=== PATIENT | female | born 1945 | race Caucasian/White ===

== ENCOUNTER 2017-11-28 19:13 | Emergency (ER) | payer MEDICARE ==
[~2017-11-28] VITALS: Ht 152.4 cm; Wt 70.8 kg
[2017-11-28 20:16] LABS: BASOPHILS # (AUTO) 0.1 (0.0-0.1); EOSINOPHILS # (AUTO) 0.3 (0.0-0.4); EOSINOPHILS % 3.2 % (0.0-6.0); HEMOGLOBIN 11.7 g/dL (12.0-16.0); LYMPHOCYTES # (AUTO) 2.7 (1.0-3.2); LYMPHOCYTES % 33.5 % (18.0-39.1); MEAN CORPUSCULAR HEMOGLOBIN 28.3 pg (28-32); MEAN CORPUSCULAR HGB CONC 31.6 g/dL (31-35); MEAN CORPUSCULAR VOLUME 89.4 fL (81-99); MONOCYTES # (AUTO) 0.8 (0.2-0.8); MONOCYTES % 9.5 % (4.4-11.3); NEUTROPHILS # (AUTO) 4.2 (2.1-6.9); NEUTROPHILS % 52.6 % (38.7-80.0); PLATELET COUNT 435 x10e3/uL (140-360); RED BLOOD COUNT 4.14 x10e6/uL (3.6-5.1); RED CELL DISTRIBUTION WIDTH 14.3 % (11.7-14.4)
[2017-11-28 20:33] LABS: ALANINE AMINOTRANSFERASE 11 IU/L (0-55); ALBUMIN 2.9 g/dL (3.5-5.0); ALBUMIN/GLOBULIN RATIO 0.7 (0.8-2.0); ALKALINE PHOSPHATASE 83 IU/L (40-150); ANION GAP 14.1 mmol/L (8-16); BLOOD UREA NITROGEN 14 mg/dL (7-26); BUN/CREATININE RATIO 24 (6-25); CALCIUM 10.2 mg/dL (8.4-10.2); CARBON DIOXIDE 29 mmol/L (22-29); CHLORIDE 102 mmol/L (98-107); CREATININE, SERUM 0.59 mg/dL (0.57-1.11); EST GLOMERULAR FILTRATION RATE > 60 ML/MIN (60-); GLUCOSE 90 mg/dL (74-118); POTASSIUM 4.1 mmol/L (3.5-5.1); SODIUM 141 mmol/L (136-145)
== END 2017-11-28 22:15 | disposition home or self-care (01) ==
LOC: ER 19:13
DX: M79.1 Myalgia (principal); R60.0 Localized edema
CPT/HCPCS: 36415; 80053; 85025; 87400; 99283

== ENCOUNTER 2019-07-18 23:32 | Inpatient (IN) | payer MEDICARE, OTHER ==
[~2019-07-18] VITALS: Ht 152.4 cm; Wt 60.1 kg
--- OUTSIDE RECORDS SUMMARY | 2019-07-18 23:35 | XMS REPORT ---
[facility] Address Unknown Phone Unavailable Care Team Providers Care Station Installation Supervisor Name Role Phone BAM PARHAM MD PP Payers Payer Name Policy Type Policy Number Effective Date Expiration Date [facility] [id number] 2008 00:00:00 Problems This patient has no known problems. Allergies, Adverse Reactions, Alerts Allergy Name Allergy Type Status Severity Reaction(s) Onset Date Inactive Date Treating Clinician Comments No Known Allergies DA Active U 2019-05-25 00:00:00 No Known Allergies DA Active U 2010-11-06 00:00:00 Medications This patient has no known medications. Encounters Start Date/Time End Date/Time Encounter Type Admission Type Attending Clinicians Care Facility Care Department Encounter ID 2019-05-11 02:09:00 2019-05-10 20:38:00 Inpatient E [facility] [id number] 2017-11-28 19:13:00 2017-11-28 19:13:00 Registered Emergency Room [facility] [id number] Results Test Description Test Time Test Comments Text Results Atomic Results Result Comments UA RFLX MICR CULT IF INDICATED 2019-05-31 16:16:00 UA COLOR (test code=COLU) YELLOW YEL/STRAW UA APPEARANCE (test code=APPU) CLEAR CLEAR UA GLUCOSE DIPSTICK (test code=DGLUU) NEGATIVE NEGATIVE UA BILIRUBIN DIPSTICK (test code=BILU) NEGATIVE NEGATIVE UA KETONE DIPSTICK (test code=KETU) NEGATIVE NEGATIVE UA SPECIFIC GRAVITY (test code=SGU) 1.006 1.005-1.030 UA BLOOD DIPSTICK (test code=SHARON) 1+ NEGATIVE UA PH DIPSTICK (test code=BRYN) 7.0 5.0-7.0 UA PROTEIN DIPSTICK (test code=PROU) NEGATIVE NEGATIVE UA UROBILINIOGEN DIPSTICK (test code=URO) 0.2 mg/dL 0.2-1.0 UA NITRITE DIPSTICK (test code=RACH) NEGATIVE NEGATIVE UA LEUKOCYTE ESTERASE DIPSTICK (test code=LEUU) NEGATIVE NEGATIVE UA WBC (test code=WBCU) 0-3 WBC/HPF 0-3 UA RBC (test code=RBCU) 11-20 RBC/HPF 0-3 UA WBC NO REFLEX (test code=WBCUCL) 0-3 WBC/HPF 0-3 UA BACTERIA (test code=BACU) NONE SEEN /HPF NONE SEEN UA SQUAMOUS CELLS (test code=SQU) NONE SEEN /HPF NONE SEEN UA MUCUS (test code=MUCU) TRACE /LPF NONE SEEN UA AMORPHOUS SEDIMENT (test code=AMORU) TRACE /HPF NONE Indication for culture: Temperature > 100.4 FSpecimen Description: CLEAN CATCHBASIC METABOLIC [id number] 08:07:00* Test Item Value Reference Range Comments SODIUM (test code=NA) 134 mEq/L 134-147 POTASSIUM (test code=K) 4.0 mEq/L 3.4-5.0 CHLORIDE (test code=CL) 101 mEq/L 100-108 CARBON DIOXIDE (test code=CO2) 24 mEq/L 21-33 ANION GAP (test code=GAP) 13 0-20 GLUCOSE (test code=GLU) 63 mg/dL 70-110 BLOOD UREA NITROGEN (test code=BUN) 7 mg/dL 7-18 GLOMERULAR FILTRATION RATE (test code=GFR) 216.9 70-80 Units of measure=ml/min/1.73 m2 CREATININE (test code=CREAT) 0.3 mg/dL 0.6-1.3 CALCIUM (test code=CA) 9.3 mg/dL 8.0-10.5 CBC W/AUTO [id number] 07:47:00* Test Item Value Reference Range Comments WHITE BLOOD CELL (test code=WBC) 7.08 x10 3/uL 4.5-11.0 RED BLOOD CELL (test code=RBC) 3.35 x10 6/uL 3.54-5.02 HEMOGLOBIN (test code=HGB) 9.1 g/dL 11.0-15.0 HEMATOCRIT (test code=HCT) 27.4 % 33.0-45.0 MEAN CELL VOLUME (test code=MCV) 81.8 fL 81.0-99.0 MEAN CELL HGB (test code=MCH) 27.2 pg 27.0-33.0 MEAN CELL HGB CONCETRATION (test code=MCHC) 33.2 g/dL 33.0-37.0 RED CELL DISTRIBUTION WIDTH CV (test code=RDW) 16.0 % 11.5-14.5 RED CELL DISTRIBUTION WIDTH SD (test code=RDW-SD) 46.9 fL 37.0-54.0 PLATELET COUNT (test code=PLT) 423 x10 3/uL 150-400 MEAN PLATELET VOLUME (test code=MPV) 10.9 fL 7.0-9.0 NEUTROPHIL % (test code=NT%) 56.5 % 56.0-77.0 IMMATURE GRANULOCYTE % (test code=IG%) 0.6 % 0.0-2.0 LYMPHOCYTE % (test code=LY%) 26.1 % 14.0-32.0 MONOCYTE % (test code=MO%) 8.8 % 4.8-9.0 EOSINOPHIL % (test code=EO%) 6.9 % 0.3-3.7 BASOPHIL % (test code=BA%) 1.1 % 0.0-2.0 NUCLEATED RBC % (test code=NRBC%) 0.0 % 0-0 NEUTROPHIL # (test code=NT#) 4.00 x10 3/uL 2.0-7.6 IMMATURE GRANULOCYTE # (test code=IG#) 0.04 x10 3/uL 0.00-0.03 LYMPHOCYTE # (test code=LY#) 1.85 x10 3/uL 1.0-3.8 MONOCYTE # (test code=MO#) 0.62 x10 3/uL 0.1-0.8 EOSINOPHIL # (test code=EO#) 0.49 x10 3/uL 0.0-0.2 BASOPHIL # (test code=BA#) 0.08 x10 3/uL 0.0-0.2 NUCLEATED RBC # (test code=NRBC#) 0.00 x10 3/uL 0.0-0.1 MANUAL DIFF REQUIRED (test code=MDIFF) NO [id number] 21:19:00* Test Item Value Reference Range Comments GLUBED (test code=GLUBED) 77 MG/DL 70-110 Performed by certified transmission system operator at [facility] CBC W/AUTO [id number] 09:14:00* Test Item Value Reference Range Comments WHITE BLOOD CELL (test code=WBC) 7.09 x10 3/uL 4.5-11.0 RED BLOOD CELL (test code=RBC) 3.52 x10 6/uL 3.54-5.02 HEMOGLOBIN (test code=HGB) 9.6 g/dL 11.0-15.0 HEMATOCRIT (test code=HCT) 30.4 % 33.0-45.0 MEAN CELL VOLUME (test code=MCV) 86.4 fL 81.0-99.0 MEAN CELL HGB (test code=MCH) 27.3 pg 27.0-33.0 MEAN CELL HGB CONCETRATION (test code=MCHC) 31.6 g/dL 33.0-37.0 RED CELL DISTRIBUTION WIDTH CV (test code=RDW) 15.9 % 11.5-14.5 RED CELL DISTRIBUTION WIDTH SD (test code=RDW-SD) 49.7 fL 37.0-54.0 PLATELET COUNT (test code=PLT) 501 x10 3/uL 150-400 MEAN PLATELET VOLUME (test code=MPV) 10.0 fL 7.0-9.0 NEUTROPHIL % (test code=NT%) 69.0 % 56.0-77.0 IMMATURE GRANULOCYTE % (test code=IG%) 0.3 % 0.0-2.0 LYMPHOCYTE % (test code=LY%) 18.6 % 14.0-32.0 MONOCYTE % (test code=MO%) 6.6 % 4.8-9.0 EOSINOPHIL % (test code=EO%) 4.7 % 0.3-3.7 BASOPHIL % (test code=BA%) 0.8 % 0.0-2.0 NUCLEATED RBC % (test code=NRBC%) 0.0 % 0-0 NEUTROPHIL # (test code=NT#) 4.89 x10 3/uL 2.0-7.6 IMMATURE GRANULOCYTE # (test code=IG#) 0.02 x10 3/uL 0.00-0.03 LYMPHOCYTE # (test code=LY#) 1.32 x10 3/uL 1.0-3.8 MONOCYTE # (test code=MO#) 0.47 x10 3/uL 0.1-0.8 EOSINOPHIL # (test code=EO#) 0.33 x10 3/uL 0.0-0.2 BASOPHIL # (test code=BA#) 0.06 x10 3/uL 0.0-0.2 NUCLEATED RBC # (test code=NRBC#) 0.00 x10 3/uL 0.0-0.1 MANUAL DIFF REQUIRED (test code=MDIFF) NO BASIC METABOLIC [id number] 08:25:00* Test Item Value Reference Range Comments SODIUM (test code=NA) 139 mEq/L 134-147 POTASSIUM (test code=K) 4.0 mEq/L 3.4-5.0 CHLORIDE (test code=CL) 108 mEq/L 100-108 CARBON DIOXIDE (test code=CO2) 24 mEq/L 21-33 ANION GAP (test code=GAP) 11 0-20 GLUCOSE (test code=GLU) 75 mg/dL 70-110 BLOOD UREA NITROGEN (test code=BUN) 11 mg/dL 7-18 GLOMERULAR FILTRATION RATE (test code=GFR) 216.9 70-80 Units of measure=ml/min/1.73 m2 CREATININE (test code=CREAT) 0.3 mg/dL 0.6-1.3 CALCIUM (test code=CA) 8.7 mg/dL 8.0-10.5 UA RFLX MICR CULT IF [id number] 01:29:00* Test Item Value Reference Range Comments UA COLOR (test code=COLU) YELLOW YEL/STRAW UA APPEARANCE (test code=APPU) HAZY CLEAR UA GLUCOSE DIPSTICK (test code=DGLUU) NEGATIVE NEGATIVE UA BILIRUBIN DIPSTICK (test code=BILU) NEGATIVE NEGATIVE UA KETONE DIPSTICK (test code=KETU) NEGATIVE NEGATIVE UA SPECIFIC GRAVITY (test code=SGU) 1.010 1.005-1.030 UA BLOOD DIPSTICK (test code=SHARON) 1+ NEGATIVE UA PH DIPSTICK (test code=BRYN) 7.0 5.0-7.0 UA PROTEIN DIPSTICK (test code=PROU) NEGATIVE NEGATIVE UA UROBILINIOGEN DIPSTICK (test code=URO) 0.2 mg/dL 0.2-1.0 UA NITRITE DIPSTICK (test code=RACH) NEGATIVE NEGATIVE UA LEUKOCYTE ESTERASE DIPSTICK (test code=LEUU) 2+ NEGATIVE UA WBC (test code=WBCU) 4-9 WBC/HPF 0-3 UA RBC (test code=RBCU) 4-10 RBC/HPF 0-3 UA WBC NO REFLEX (test code=WBCUCL) 4-9 WBC/HPF 0-3 UA BACTERIA (test code=BACU) TRACE /HPF NONE SEEN UA SQUAMOUS CELLS (test code=SQU) 0-5 /HPF NONE SEEN UA MUCUS (test code=MUCU) TRACE /LPF NONE SEEN UA YEAST (BUDDING) (test code=YEASTUBD) 2+ /HPF NONE Indication for culture: Temperature > 100.4 FSpecimen Description: STRAIGHT CATHUA RFLX MICR CULT IF [id number] 01:14:00* Test Item Value Reference Range Comments UA COLOR (test code=COLU) YELLOW YEL/STRAW UA APPEARANCE (test code=APPU) HAZY CLEAR UA GLUCOSE DIPSTICK (test code=DGLUU) NEGATIVE NEGATIVE UA BILIRUBIN DIPSTICK (test code=BILU) NEGATIVE NEGATIVE UA KETONE DIPSTICK (test code=KETU) NEGATIVE NEGATIVE UA SPECIFIC GRAVITY (test code=SGU) 1.010 1.005-1.030 UA BLOOD DIPSTICK (test code=SHARON) 1+ NEGATIVE UA PH DIPSTICK (test code=BRYN) 7.0 5.0-7.0 UA PROTEIN DIPSTICK (test code=PROU) NEGATIVE NEGATIVE UA UROBILINIOGEN DIPSTICK (test code=URO) 0.2 mg/dL 0.2-1.0 UA NITRITE DIPSTICK (test code=RACH) NEGATIVE NEGATIVE UA LEUKOCYTE ESTERASE DIPSTICK (test code=LEUU) 2+ NEGATIVE UA WBC (test code=WBCU) WBC/HPF 0-3 UA RBC (test code=RBCU) RBC/HPF 0-3 Indication for culture: Temperature > 100.4 FSpecimen Description: STRAIGHT CATHPROCALCITONIN (PCT)2019-05-27 10:46:00* Test Item Value Reference Range Comments PROCALCITONIN (PCT) (test code=PROCAL) 0.73 ng/mL 0.00-0.05 PROCALCITONIN (PCT) NORMAL RANGE (ADULT): <0.05 NG/ML. * a concentration <0.5 ng/mL represents a low risk of severe sepsis and/or septic shock.* a concentration >2 ng/mL represents a high risk of severe sepsis and/or septic shock.Nevertheless, concentrations <0.5 ng/mL do not exclude aninfection, on account of localized infections (withoutsystemic signs) which can be associated with such lowconcentrations, or a systemic infection in its initialstages (< 6 hours). Furthermore, increased procalcitonincan occur without infection. PCT concentrations between 0.5and 2.0 ng/mL should be interpreted taking into account thepatient's history. It is recommended to retest PCT within6-24 hours if any concentrations <2 ng/mL are obtained. CBC W/AUTO [id number] 06:09:00* Test Item Value Reference Range Comments WHITE BLOOD CELL (test code=WBC) 8.26 x10 3/uL 4.5-11.0 RED BLOOD CELL (test code=RBC) 3.20 x10 6/uL 3.54-5.02 HEMOGLOBIN (test code=HGB) 8.8 g/dL 11.0-15.0 HEMATOCRIT (test code=HCT) 27.4 % 33.0-45.0 MEAN CELL VOLUME (test code=MCV) 85.6 fL 81.0-99.0 MEAN CELL HGB (test code=MCH) 27.5 pg 27.0-33.0 MEAN CELL HGB CONCETRATION (test code=MCHC) 32.1 g/dL 33.0-37.0 RED CELL DISTRIBUTION WIDTH CV (test code=RDW) 15.5 % 11.5-14.5 RED CELL DISTRIBUTION WIDTH SD (test code=RDW-SD) 47.6 fL 37.0-54.0 PLATELET COUNT (test code=PLT) 347 x10 3/uL 150-400 MEAN PLATELET VOLUME (test code=MPV) 9.6 fL 7.0-9.0 NEUTROPHIL % (test code=NT%) 74.2 % 56.0-77.0 IMMATURE GRANULOCYTE % (test code=IG%) 0.2 % 0.0-2.0 LYMPHOCYTE % (test code=LY%) 15.5 % 14.0-32.0 MONOCYTE % (test code=MO%) 7.3 % 4.8-9.0 EOSINOPHIL % (test code=EO%) 2.2 % 0.3-3.7 BASOPHIL % (test code=BA%) 0.6 % 0.0-2.0 NUCLEATED RBC % (test code=NRBC%) 0.0 % 0-0 NEUTROPHIL # (test code=NT#) 6.13 x10 3/uL 2.0-7.6 IMMATURE GRANULOCYTE # (test code=IG#) 0.02 x10 3/uL 0.00-0.03 LYMPHOCYTE # (test code=LY#) 1.28 x10 3/uL 1.0-3.8 MONOCYTE # (test code=MO#) 0.60 x10 3/uL 0.1-0.8 EOSINOPHIL # (test code=EO#) 0.18 x10 3/uL 0.0-0.2 BASOPHIL # (test code=BA#) 0.05 x10 3/uL 0.0-0.2 NUCLEATED RBC # (test code=NRBC#) 0.00 x10 3/uL 0.0-0.1 MANUAL DIFF REQUIRED (test code=MDIFF) NO BASIC METABOLIC [id number] 05:52:00* Test Item Value Reference Range Comments SODIUM (test code=NA) 139 mEq/L 134-147 POTASSIUM (test code=K) 3.8 mEq/L 3.4-5.0 CHLORIDE (test code=CL) 108 mEq/L 100-108 CARBON DIOXIDE (test code=CO2) 25 mEq/L 21-33 ANION GAP (test code=GAP) 10 0-20 GLUCOSE (test code=GLU) 89 mg/dL 70-110 BLOOD UREA NITROGEN (test code=BUN) 10 mg/dL 7-18 GLOMERULAR FILTRATION RATE (test code=GFR) 155.6 70-80 Units of measure=ml/min/1.73 m2 CREATININE (test code=CREAT) 0.4 mg/dL 0.6-1.3 CALCIUM (test code=CA) 8.1 mg/dL 8.0-10.5 [id number] 05:52:00* Test Item Value Reference Range Comments MAGNESIUM (test code=MAG) 1.60 mg/dL 1.8-2.[id number] 16:36:00* Test Item Value Reference Range Comments SYNOVIAL FLD COLOR (test code=COLSY) YELLOW SYNOVIAL FLD APPEARANCE (test code=APPSY) CLOUDY SYNOVIAL FLD WBC (test code=WBCSY) 4005 cells/uL 0-200 SYNOVIAL FLD RBC (test code=RBCSY) 3000 Cells/uL 0-0 SYNOVIAL FLD POLY (test code=POLYSY) 93 % SYNOVIAL FLD LYMPHOCYTE (test code=LYMPHSY) 1 % SYNOVIAL FLD MONOCYTE (test code=MONOSY) 6 % CRYSTAL [id number] 15:17:00* Test Item Value Reference Range Comments CRYSTALS BY POLARIZED LIGHT (test code=THALIA) POS FOR URIC ACID SPECIMEN SOURCE (test code=SCRYS) SYNOVIAL FLUID SYNOVIAL FLD CELL [id number] 14:38:00* Test Item Value Reference Range Comments SYNOVIAL FLD COLOR (test code=COLSY) SYNOVIAL FLD APPEARANCE (test code=APPSY) SYNOVIAL FLD WBC (test code=WBCSY) 4005 cells/uL 0-200 SYNOVIAL FLD RBC (test code=RBCSY) 3000 Cells/uL 0-0 SYNOVIAL FLD POLY (test code=POLYSY) % CBC W/AUTO [id number] 10:20:00* Test Item Value Reference Range Comments WHITE BLOOD CELL (test code=WBC) 7.04 x10 3/uL 4.5-11.0 RED BLOOD CELL (test code=RBC) 3.16 x10 6/uL 3.54-5.02 HEMOGLOBIN (test code=HGB) 8.8 g/dL 11.0-15.0 HEMATOCRIT (test code=HCT) 27.4 % 33.0-45.0 MEAN CELL VOLUME (test code=MCV) 86.7 fL 81.0-99.0 MEAN CELL HGB (test code=MCH) 27.8 pg 27.0-33.0 MEAN CELL HGB CONCETRATION (test code=MCHC) 32.1 g/dL 33.0-37.0 RED CELL DISTRIBUTION WIDTH CV (test code=RDW) 15.6 % 11.5-14.5 RED CELL DISTRIBUTION WIDTH SD (test code=RDW-SD) 48.6 fL 37.0-54.0 PLATELET COUNT (test code=PLT) 604 x10 3/uL 150-400 MEAN PLATELET VOLUME (test code=MPV) 9.1 fL 7.0-9.0 NEUTROPHIL % (test code=NT%) 65.4 % 56.0-77.0 IMMATURE GRANULOCYTE % (test code=IG%) 0.4 % 0.0-2.0 LYMPHOCYTE % (test code=LY%) 23.2 % 14.0-32.0 MONOCYTE % (test code=MO%) 7.2 % 4.8-9.0 EOSINOPHIL % (test code=EO%) 2.8 % 0.3-3.7 BASOPHIL % (test code=BA%) 1.0 % 0.0-2.0 NUCLEATED RBC % (test code=NRBC%) 0.0 % 0-0 NEUTROPHIL # (test code=NT#) 4.60 x10 3/uL 2.0-7.6 IMMATURE GRANULOCYTE # (test code=IG#) 0.03 x10 3/uL 0.00-0.03 LYMPHOCYTE # (test code=LY#) 1.63 x10 3/uL 1.0-3.8 MONOCYTE # (test code=MO#) 0.51 x10 3/uL 0.1-0.8 EOSINOPHIL # (test code=EO#) 0.20 x10 3/uL 0.0-0.2 BASOPHIL # (test code=BA#) 0.07 x10 3/uL 0.0-0.2 NUCLEATED RBC # (test code=NRBC#) 0.00 x10 3/uL 0.0-0.1 MANUAL DIFF REQUIRED (test code=MDIFF) NO SED RATE [id number] 10:20:00* Test Item Value Reference Range Comments SED RATE ALONDRA (test code=SEDW) 112 mm/hr 0-20 CBC W/AUTO [id number] 09:41:00* Test Item Value Reference Range Comments WHITE BLOOD CELL (test code=WBC) 7.04 x10 3/uL 4.5-11.0 RED BLOOD CELL (test code=RBC) 3.16 x10 6/uL 3.54-5.02 HEMOGLOBIN (test code=HGB) 8.8 g/dL 11.0-15.0 HEMATOCRIT (test code=HCT) 27.4 % 33.0-45.0 MEAN CELL VOLUME (test code=MCV) 86.7 fL 81.0-99.0 MEAN CELL HGB (test code=MCH) 27.8 pg 27.0-33.0 MEAN CELL HGB CONCETRATION (test code=MCHC) 32.1 g/dL 33.0-37.0 RED CELL DISTRIBUTION WIDTH CV (test code=RDW) 15.6 % 11.5-14.5 RED CELL DISTRIBUTION WIDTH SD (test code=RDW-SD) 48.6 fL 37.0-54.0 PLATELET COUNT (test code=PLT) 604 x10 3/uL 150-400 MEAN PLATELET VOLUME (test code=MPV) 9.1 fL 7.0-9.0 NEUTROPHIL % (test code=NT%) 65.4 % 56.0-77.0 IMMATURE GRANULOCYTE % (test code=IG%) 0.4 % 0.0-2.0 LYMPHOCYTE % (test code=LY%) 23.2 % 14.0-32.0 MONOCYTE % (test code=MO%) 7.2 % 4.8-9.0 EOSINOPHIL % (test code=EO%) 2.8 % 0.3-3.7 BASOPHIL % (test code=BA%) 1.0 % 0.0-2.0 NUCLEATED RBC % (test code=NRBC%) 0.0 % 0-0 NEUTROPHIL # (test code=NT#) 4.60 x10 3/uL 2.0-7.6 IMMATURE GRANULOCYTE # (test code=IG#) 0.03 x10 3/uL 0.00-0.03 LYMPHOCYTE # (test code=LY#) 1.63 x10 3/uL 1.0-3.8 MONOCYTE # (test code=MO#) 0.51 x10 3/uL 0.1-0.8 EOSINOPHIL # (test code=EO#) 0.20 x10 3/uL 0.0-0.2 BASOPHIL # (test code=BA#) 0.07 x10 3/uL 0.0-0.2 NUCLEATED RBC # (test code=NRBC#) 0.00 x10 3/uL 0.0-0.1 MANUAL DIFF REQUIRED (test code=MDIFF) NO SED RATE [id number] 09:41:00* Test Item Value Reference Range Comments SED RATE WESTERGREN (test code=SEDW) mm/hr 0-20 PROCALCITONIN (PCT)2019-05-26 09:40:00* Test Item Value Reference Range Comments PROCALCITONIN (PCT) (test code=PROCAL) 0.21 ng/mL 0.00-0.05 PROCALCITONIN (PCT) NORMAL RANGE (ADULT): <0.05 NG/ML. * a concentration <0.5 ng/mL represents a low risk of severe sepsis and/or septic shock.* a concentration >2 ng/mL represents a high risk of severe sepsis and/or septic shock.Nevertheless, concentrations <0.5 ng/mL do not exclude aninfection, on account of localized infections (withoutsystemic signs) which can be associated with such lowconcentrations, or a systemic infection in its initialstages (< 6 hours). Furthermore, increased procalcitonincan occur without infection. PCT concentrations between 0.5and 2.0 ng/mL should be interpreted taking into account thepatient's history. It is recommended to retest PCT within6-24 hours if any concentrations <2 ng/mL are obtained. BASIC METABOLIC [id number] 08:32:00* Test Item Value Reference Range Comments SODIUM (test code=NA) 140 mEq/L 134-147 POTASSIUM (test code=K) 2.6 mEq/L 3.4-5.0 CHLORIDE (test code=CL) 112 mEq/L 100-108 CARBON DIOXIDE (test code=CO2) 23 mEq/L 21-33 ANION GAP (test code=GAP) 8 0-20 GLUCOSE (test code=GLU) 85 mg/dL 70-110 BLOOD UREA NITROGEN (test code=BUN) 8 mg/dL 7-18 GLOMERULAR FILTRATION RATE (test code=GFR) 216.9 70-80 Units of measure=ml/min/1.73 m2 CREATININE (test code=CREAT) 0.3 mg/dL 0.6-1.3 CALCIUM (test code=CA) 8.2 mg/dL 8.0-10.5 [id number] 08:32:00* Test Item Value Reference Range Comments MAGNESIUM (test code=MAG) 1.50 mg/dL 1.8-2.4 - XR KNEE 1 OR 2 V [id number] 22:43:00 FAX: Bebe Jasmine MD [phone] [place]: St: [facility] FAX: Bam Shelton MD [phone] Name: KAMERON CHENEY [facility] : 1945 Age/S: 74/F [address] [place] [address] Unit #: [id number] Loc: [address] [address] Phys: Bebe Butts MD Acct: [id number] Dis Date: Status: ADM IN PHONE #: [phone] Exam Date: 05/25/20192102 FAX #: [phone] Reason: left knee swelling and pain EXAMS: CPT CODE: [id number] XR KNEE 1 [place] 2 [place] [id number] Left knee, 2 views dated 05/25/2019. HISTORY: Left knee pain and swelling. AP and crosstable lateral views of the left knee demonstrate no evidence of acute fracture, dislocation or bone dest ruction. Osteoarthritic changes are present and most significantly affect the patellofemoral joint. Fullness in the region of the suprapatellar bursa on the cross table lateral image likely indicates the presence of a left knee joint effusion. IMPRESSION: 1. No acute b rona abnormalities of the left knee are detected. 2. Left knee joint eff usion. SL: 131 at 2243 Reported and signed by: Sylvia Pineda. CC: Bebe Butts MD; Bam Parham MD Technologist: Maribell Martin, RT(R); Sapphire Rick RT(R) Trnscrd Date/Time/By: 05/25/2019 (2242) : By: Jai Orig Print D/T: S: 0 05/25/2019 (2245) PAGE 1 Signed Re port - XR SHOULDER 2 + V [id number] 22:40:00 FAX: Bebe Jasmine MD [phone] [place]: St: ADM FAX: Bam Shelton MD [phone] Name: KAMERON CHENEY [facility] : 1945 Age/S: 74/F [address] [place] [address] Unit #: [id number] Loc: G.446 [facility] X [address] Phys: Bebe Butts MD Acct: [id number] Dis Date: Status: ADM IN PHONE #: [phone] Exam Date: 05/25/20192102 FAX #: [phone] Reason: shoulder swelling and pain EXAMS: CPT CODE: [id number] XR SHOULDER 2 + [place] [id number] Right shoulder, 3 views dated 05/25/2019. HISTORY: Right shoulder pain and swelling. Images of the right shoulder wer e obtained in 3 projections. The proximal right humerus appears intact an d normally located. Superior subluxation of the humerus is noted with ero dipesh of the undersurface of the acromion and distal clavicle, compatible w ith a chronic rotator cuff tear. There is no evidence of acute fracture o r obvious bone destruction. Glenohumeral degenerative changes are noted. IMPRESSION: 1. No acute bony abnormalities of the right shoulder are detected. 2. 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 3. Glenohumeral osteoarthritis. SL: 131 at 2240 Reported and signed by: Steve Madrid M.D. CC: Bebe Butts MD; Bam Parham MD Technologist: Maribell Martin, RT(R); Sapphire Rick RT(R) Trnscrd Date/Time/By: 05/25/19 20 (0) : By: TamieDMM Orig Print D/T: S: 05/25/2019 (9304) PAGE 1 Signed Report PROCALCITONIN (PCT)2019-05-25 21:56:00* Test Item Value Reference Range Comments PROCALCITONIN (PCT) (test code=PROCAL) 0.25 ng/mL 0.00-0.05 PROCALCITONIN (PCT) NORMAL RANGE (ADULT): <0.05 NG/ML. * a concentration <0.5 ng/mL represents a low risk of severe sepsis and/or septic shock.* a concentration >2 ng/mL represents a high risk of severe sepsis and/or septic shock.Nevertheless, concentrations <0.5 ng/mL do not exclude aninfection, on account of localized infections (withoutsystemic signs) which can be associated with such lowconcentrations, or a systemic infection in its initialstages (< 6 hours). Furthermore, increased procalcitonincan occur without infection. PCT concentrations between 0.5and 2.0 ng/mL should be interpreted taking into account thepatient's history. It is recommended to retest PCT within6-24 hours if any concentrations <2 ng/mL are obtained. C REACTIVE [id number] 19:07:00* Test Item Value Reference Range Comments C REACTIVE PROTEIN (test code=CRP) 198.0 MG/L 0.0-2.9 URIC [id number] 18:57:00* Test Item Value Reference Range Comments URIC ACID (test code=URIC) 2.4 mg/dL 2.6-7.2 LACTIC ACID [id number] 19:48:00* Test Item Value Reference Range Comments LACTIC ACID REPEAT (test code=LACTR) 0.9 mmol/l 0.4-1.9 - CT CHEST [id number] 19:05:00 Name: KAMERON CHENEY Luttrell : 1945 Age/S: 74 / F [address] [place] [address] Unit #: [id number] Loc: [place] [address] Phys: Dale Dozier MD Acct: [id number] Dis Date: Status: ADM IN PHONE #: [phone] Exam Date: 05/24/2019 1834 FAX #: [phone] Reason: AMS / Abnormal CXR / Fever EXAMS: CPT CODE: [id number] CT CHEST W/CONTRAST 67061 Procedure: CT Chest with contrast. Clinical Indication: Altered mental status, fever. Comparison: Chest radiograph 05/24/2019. TECHNIQUE: Sequential trans-axial images were obtained thru the chest and upper abdomen after administration of iodinated contrast. Coronal and sagittal reconstructions were obtained. 100mL of Isovue-300 contrast material was used for the exam. CT imaging performed at this location utilizes radiation dose optimization techniques which include one or more of the following: -Automated exposure control -Adjustment of the mA and/or kV according to patient size - Use of iterative reconstruction technique CT Radiation Dose DLP 407 mGy-cm FINDINGS: LUNG PARENCHYMA AND PLEURA: There is subsegmental atelectasis and interstitial infiltrate in the posterior right upper lobe, with bibasilar subsegmental atelectasis in the posterior lower lobes. No focal consolidation or parenchymal mass. There is prominence of the right hilar vasculature likely responsible for density noted on chest radiograph. AIRWAY: The central airway is normal. MEDIASTINUM: There is no mediastinal lymphadenopathy. HEART: The heart is upper limits of normal in size. Coronary artery calcifications are present VASCULAR STRUCTURES: The pulmonary arteries and great vessels are unremarkable. The thoracic aorta is unremarkable. The superior vena cava is unremarkable. VISUALIZED UPPER ABDOMEN: There is a moderate-sized hiatal hernia. There is a complex 2.4 cm cystic lesion arising from the posterior upper pole of the left kidney d emonstrating a thin internal septation. A 1 cm partially exophytic simple appearing cyst is noted laterally. 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 Degenerative change and levoscoliosis involves the thora cic spine. There is accentuated dorsal kyphosis. PAGE 1 Signed Report (CONTINUED) Name: KAMERON CHENEY : 1945 Age/S: 74 / F [address] [facility] [address] Unit #: [id number] Loc: [place] [address] Phys: Dale Dozier MD Acct: [id number] Dis Date: Status: ADM IN PHONE #: [phone] Exam Date: 05/24/20191833 FAX #: [phone] Reason: AMS / Ab normal CXR / Fever EXAMS: CPT CODE: [id number] CT CHEST W/CONTRAST 61730 <Continued> IMPRESSION: 1. Bilateral subsegmental atelectasis with minimal interstitial infiltrate in the posterior right upper lobe. 2. Cardiomegaly with coronary artery calcifications. 3. Hiatal hernia. 4. Left renal cysts, one of which is complex, further characterization with renal ultrasound may be helpful. 5. Partial osteolysis of the acromioclavicular joints with bilateral shoulder joint effusions, septic arthritis cannot be entirely excluded and further assessment with MR imaging may be helpful if indicated clinically. SL: OCO-H at 1905 Reported and signed by: Atilio Bryant M.D. CC: Dale Dozier MD; Bam Parham MD Technologist:RT Maira(R)(CT) CTDI: DLP: Trnscb Date/Time: 05/24/2019 (1904) [email or web address] Orig Print D/T: S: 05/24/2019 (1907) PAGE 2 Signed Report - CT HEAD/BRAIN W/O [id number] 18:58:00 Name: KAMERON CHENEY : 1945 Age/S: 74 / F [address] [facility] Unit #: [id number] Loc: [place] [address] Phys: Cara Dozier MD Acct: [id number] Di s Date: Status: ADM IN PHONE #: Exam Date: 05/24/20191833 FAX #: [phone] Reason: AMS EXAMS: CPT CODE: [id number] CT HEAD/BRAIN W/O CONT 52172 Clinical Indication: Alte red mental status Comparison: Prior CT brain study dated 8. TECHNIQUE: CT images were obtained from the foramen magnum to t he vertex without the use of intravenous contrast on a multidetector CT. Coronal and sagittal reconstructions were obtained. CT imaging per formed at this location utilizes radiation dose optimization techniques wh ich include one or more of the following: -Automated exposure control -Adjustment of the mA and/or kV according to patient size -Use of iterat lefty reconstruction technique CT Radiation Dose DLP 419.7 mGy-cm FINDINGS: BRAIN PARENCHYMA: There is generalized brain paren chymal atrophy related to the patient's age. Old changes of encephalomala bonnie in the left temporal occipital lobe. This is new since the prior CT s tudy dated 02/24/2018. Mild Nonspecific periventricular white matter disease changes are noted. Atherosclerotic calcifications are present wi thin the carotid siphons and distal vertebral arteries. There are no foca l mass lesions on this noncontrast head CT. There is no mass effect, midli ne shift or edema. There are no intra-axial or extra-axial fluid collectio ns, intraventricular or intraparenchymal hemorrhage. There is no noncontra st CT evidence of a subacute stroke. The pineal, sellar, brainstem, cerebe llum and skull base regions appear unremarkable. VENTRICLES: The lateral ventricles, third and fourth ventricles appear unremarkable. The basilar cisterns are normal. ORBITS, MASTOIDS AND PARANASAL S INUSES: Postsurgical changes along the left inferior orbital rim. Right p seudophakia. Mild mucosal thickening in the ethmoid sinuses. The mastoid air cells are clear. SKULL: There are no calvarial abnormalities seen. If there is further concern for intracranial pathology or a cute stroke, MRI of the brain may be performed for complete assessment. IMPRESSION: 1. Old changes of encephalomalacia in the left temporal occipital lobe. PAGE 1 S igned Report (CONTINUED) Name: KAMERON CHENEY [place] : 1945 Age/S: 74 / F [address] [place] [address] Unit #: [id number] Loc: [place] [address] Phys: Dale Dozier MD Acct: [id number] Dis Date: Status: ADM IN PHONE #: [phone] Exam Date: 05/24/2019 1834 FAX #: [phone] Reason: AMS EXAMS: CPT CODE: [id number] CT HEAD/BRAIN W/O CONT 05053 <Continued> 2. Generalized cerebral parenchymal volume loss with mild chronic microvascular ischemic changes. 3. Mild ethmoid sinusitis. SL: GUILLERMINA at 1858 Reported and signed by: Lulu Alcantara M.D. CC: Dale Dozier MD; Bam Parham MD Technologist:Quiana Parker RT(R)(CT) CTDI: DLP: Trnscb Date/Time: 05/24/2019 (1857) [id number] Orig Print D/T: S: 05/24/2019 (1900) PAGE 2 Signed Report - XR CHEST 1 [id number] 17:45:00 FAX: Dale Dozier MD [phone] [place]: St: REG FAX: Bam Shelton MD [phone] Name: KAMERON CHENEY [facility] : 1945 Age/S: 74/F [address] [place] [address] Unit #: [id number] Loc: [place] [address] Phys: Dale Dozier MD Acct: [id number] Dis Date: Status: REG ER PHONE #: [phone] Exam Date: 05/24/2019 1714 FAX #: [phone] Reason: AMS / Fever EXAMS: CPT CODE: [id number] XR CHEST 1 V 93335 Patient: KAMERON CHENEY. : 1945; Age: 74 years; Gender: Female. MR: [id number]. Ordering physician: Dale Dozier MD. PORTABLE CHEST AP: HISTORY: Altered mental status, fever. COMPARISON: Chest x-ray 07/30/2016. FINDINGS: Portable frontal view of the chest was obtained. Right mid to upper lung field streaky opacity is suspicious for atelectasis versus pleural parenchymal scarring, new since the previous examination. Mild left mid to lower lung field atelectasis versus pleural parenchymal scarring also noted. 2.9 x 2.5 cm right hilar opacity suspected. Differential considerations include adenopathy versus mass. Further evaluation with CT chest with IV contrast is advised if clinically indicated. Atherosclerotic calcification noted. The cardiomediastinal silhouette and pulmonary vasculature are unremarkable. The partially visualized upper abdomen is unremarkable. Degenerative changes of bilateral shoulders with nonspecific destructive change of bilateral acromioclavi cular joints suspected. Bilateral subacromial spurring. High riding righ t humeral head is compatible with chronic full-thickness rotator cuff tear . IMPRESSION: 1. 2.9 x 2.5 cm right hilar opacity suspe cted. Differential considerations include adenopathy versus mass. Furt her evaluation with CT chest with IV contrast is advised if clinically i ndicated. 2. New right mid to upper lung field atelectasis v ersus pleural parenchymal scarring. Mild left mid to lower lung field a telectasis versus pleural parenchymal scarring. 3. Deg enerative changes of bilateral shoulders with nonspecific destructive ch ralph of bilateral acromioclavicular joints suspected. Bilateral subacro mial spurring. High riding right humeral head is PAGE 1 Signed Report (CONTINUED) FAX: Dale Dozier MD [phone] [place]: St: [facility] FAX: Bam Shelton MD -------- Name: KAMERON CHENEY [facility] : 1945 Age/S: 74/F [address] [place] [address] Unit #: [id number] Loc: [place] [address] Phys: Dale Robins MD Acct: [id number] Dis Date: Status: REG ER MAN NE #: [phone] Exam Date: 05/24/2019 1714 FAX #: [phone] Reason: AMS / Fever E XAMS: CPT CODE: [id number] XR CHEST 1 V 13908 <Continued> compatible with chronic full-thickness rotator cuff tear. SL: DEBBIE-H at 1745 Reported and signed by: Jesus Arias M.D. CC: Dale Dozier MD; Bam Parham MD Technologist: Adela Giron RT(R) Trnscrd Date/Time/By: 05/24/2019 (1744) : By: [email or web address] Orig Print D/T: S: 05/24/2019 (6260) PAGE 2 Signed Report TROPONIN-I [id number] 17:12:00* Test Item Value Reference Range Comments TROPONIN-I RAPID (test code=TROPIRAP) 0.03 ng/mL 0.00-0.08 Performed by certified transmission system operator at [facility] Negative: <=0.08 Positive: >=0.09An elevated troponin value alone is not sufficient todiagnose a myocardial infarction. Rather, the patient sclinical presentation (history, physical exam) and ECGshould be used in conjunction with troponin in thediagnostic evaluation of suspected myocardial infarction. Aserial sampling protocol is recommended to facilitate the identification of temporal changes in troponin levels characteristic of PA. LACTIC [id number] 16:44:00* Test Item Value Reference Range Comments LACTIC ACID (test code=LACT) 2.3 mmol/L 0.4-1.9 BASIC METABOLIC [id number] 16:43:00* Test Item Value Reference Range Comments SODIUM (test code=NA) 140 mEq/L 134-147 POTASSIUM (test code=K) 3.3 mEq/L 3.4-5.0 CHLORIDE (test code=CL) 106 mEq/L 100-108 CARBON DIOXIDE (test code=CO2) 25 mEq/L 21-33 ANION GAP (test code=GAP) 12 0-20 GLUCOSE (test code=GLU) 88 mg/dL 70-110 BLOOD UREA NITROGEN (test code=BUN) 6 mg/dL 7-18 GLOMERULAR FILTRATION RATE (test code=GFR) 120.3 70-80 Units of measure=ml/min/1.73 m2 CREATININE (test code=CREAT) 0.5 mg/dL 0.6-1.3 CALCIUM (test code=CA) 8.6 mg/dL 8.0-10.5 HEPATIC FUNCTION [id number] 16:43:00* Test Item Value Reference Range Comments TOTAL PROTEIN (test code=PROT) 6.9 g/dL 6.4-8.2 ALBUMIN (test code=ALB) 2.00 g/dL 3.4-5.0 BILIRUBIN TOTAL (test code=BILT) 0.5 MG/DL <1.5 BILIRUBIN DIRECT (test code=BILD) 0.20 MG/DL 0.0-0.30 BILIRUBIN INDIRECT (test code=BILIND) 0.30 MG/DL SGOT/AST (test code=AST) 18 IUnit/L 15-37 SGPT/ALT (test code=ALT) 12 IUnit/L 15-65 ALKALINE PHOSPHATASE TOTAL (test code=ALKP) 89 IUnit/L 20-125 UA RFLX MICR CULT IF [id number] 16:42:00* Test Item Value Reference Range Comments UA COLOR (test code=COLU) YELLOW YEL/STRAW UA APPEARANCE (test code=APPU) CLEAR CLEAR UA GLUCOSE DIPSTICK (test code=DGLUU) NEGATIVE NEGATIVE UA BILIRUBIN DIPSTICK (test code=BILU) NEGATIVE NEGATIVE UA KETONE DIPSTICK (test code=KETU) TRACE NEGATIVE UA SPECIFIC GRAVITY (test code=SGU) 1.013 1.005-1.030 UA BLOOD DIPSTICK (test code=SHARON) 1+ NEGATIVE UA PH DIPSTICK (test code=BRYN) 5.0 5.0-7.0 UA PROTEIN DIPSTICK (test code=PROU) NEGATIVE NEGATIVE UA UROBILINIOGEN DIPSTICK (test code=URO) 0.2 mg/dL 0.2-1.0 UA NITRITE DIPSTICK (test code=RACH) NEGATIVE NEGATIVE UA LEUKOCYTE ESTERASE DIPSTICK (test code=LEUU) NEGATIVE NEGATIVE UA WBC (test code=WBCU) 4-9 WBC/HPF 0-3 UA RBC (test code=RBCU) 0-3 RBC/HPF 0-3 UA WBC NO REFLEX (test code=WBCUCL) 4-9 WBC/HPF 0-3 UA BACTERIA (test code=BACU) NONE SEEN /HPF NONE SEEN UA SQUAMOUS CELLS (test code=SQU) NONE SEEN /HPF NONE SEEN UA HYALINE CAST (test code=HYALU) 3-5 /LPF NONE SEEN UA MUCUS (test code=MUCU) TRACE /LPF NONE SEEN Indication for culture: Sev. Sepsis-no other srcSpecimen Description: INDWEL LING CATH (STEPHENS)Cath Status: Under 72 hoursBASIC METABOLIC [id number] 16:36:00* Test Item Value Reference Range Comments SODIUM (test code=NA) 140 mEq/L 134-147 POTASSIUM (test code=K) 3.3 mEq/L 3.4-5.0 CHLORIDE (test code=CL) 106 mEq/L 100-108 CARBON DIOXIDE (test code=CO2) 25 mEq/L 21-33 ANION GAP (test code=GAP) 12 0-20 GLUCOSE (test code=GLU) 88 mg/dL 70-110 BLOOD UREA NITROGEN (test code=BUN) 6 mg/dL 7-18 GLOMERULAR FILTRATION RATE (test code=GFR) 70-80 CREATININE (test code=CREAT) mg/dL 0.6-1.3 CALCIUM (test code=CA) 8.6 mg/dL 8.0-10.5 HEPATIC FUNCTION [id number] 16:36:00* Test Item Value Reference Range Comments TOTAL PROTEIN (test code=PROT) g/dL 6.4-8.2 ALBUMIN (test code=ALB) g/dL 3.4-5.0 BILIRUBIN TOTAL (test code=BILT) MG/DL <1.5 BILIRUBIN DIRECT (test code=BILD) MG/DL 0.0-0.30 SGOT/AST (test code=AST) IUnit/L 15-37 SGPT/ALT (test code=ALT) IUnit/L 15-65 ALKALINE PHOSPHATASE TOTAL (test code=ALKP) IUnit/L 20-125 CBC W/AUTO [id number] 16:28:00* Test Item Value Reference Range Comments WHITE BLOOD CELL (test code=WBC) 14.64 x10 3/uL 4.5-11.0 RED BLOOD CELL (test code=RBC) 3.55 x10 6/uL 3.54-5.02 HEMOGLOBIN (test code=HGB) 9.7 g/dL 11.0-15.0 HEMATOCRIT (test code=HCT) 30.7 % 33.0-45.0 MEAN CELL VOLUME (test code=MCV) 86.5 fL 81.0-99.0 MEAN CELL HGB (test code=MCH) 27.3 pg 27.0-33.0 MEAN CELL HGB CONCETRATION (test code=MCHC) 31.6 g/dL 33.0-37.0 RED CELL DISTRIBUTION WIDTH CV (test code=RDW) 15.6 % 11.5-14.5 RED CELL DISTRIBUTION WIDTH SD (test code=RDW-SD) 49.0 fL 37.0-54.0 PLATELET COUNT (test code=PLT) 783 x10 3/uL 150-400 MEAN PLATELET VOLUME (test code=MPV) 9.0 fL 7.0-9.0 NEUTROPHIL % (test code=NT%) 77.2 % 56.0-77.0 IMMATURE GRANULOCYTE % (test code=IG%) 0.4 % 0.0-2.0 LYMPHOCYTE % (test code=LY%) 16.9 % 14.0-32.0 MONOCYTE % (test code=MO%) 5.1 % 4.8-9.0 EOSINOPHIL % (test code=EO%) 0.1 % 0.3-3.7 BASOPHIL % (test code=BA%) 0.3 % 0.0-2.0 NUCLEATED RBC % (test code=NRBC%) 0.0 % 0-0 NEUTROPHIL # (test code=NT#) 11.29 x10 3/uL 2.0-7.6 IMMATURE GRANULOCYTE # (test code=IG#) 0.06 x10 3/uL 0.00-0.03 LYMPHOCYTE # (test code=LY#) 2.48 x10 3/uL 1.0-3.8 MONOCYTE # (test code=MO#) 0.74 x10 3/uL 0.1-0.8 EOSINOPHIL # (test code=EO#) 0.02 x10 3/uL 0.0-0.2 BASOPHIL # (test code=BA#) 0.05 x10 3/uL 0.0-0.2 NUCLEATED RBC # (test code=NRBC#) 0.00 x10 3/uL 0.0-0.1 MANUAL DIFF REQUIRED (test code=MDIFF) NO Influenza Virus Types A,B Uqtboze2379-54-30 20:37:00* Test Item Value Reference Range Comments Influenza Virus Types A,B Antigen (test nqlj=31758-5) NEGATIVE NEGATIVE Sodium [id number] 20:35:00* Test Item Value Reference Range Comments Sodium Level (test lcij=4934-5) 141 136-145 Potassium Uoxlu5090-01-26 20:35:00* Test Item Value Reference Range Comments Potassium Level (test yvvz=3305-8) 4.1 3.5-5.1 Chloride Kxjiw2846-17-38 20:35:00* Test Item Value Reference Range Comments Chloride Level (test czvv=6220-9) 102 98-107 Carbon Dioxide Imfku5498-89-81 20:35:00* Test Item Value Reference Range Comments Carbon Dioxide Level (test qfpr=6066-9) 29 22-29 Anion Vhr3748-22-51 20:35:00* Test Item Value Reference Range Comments Anion Gap (test oxwf=27298-5) 14.1 8-16 Blood Urea Ftdxdnll8751-37-37 20:35:00* Test Item Value Reference Range Comments Blood Urea Nitrogen (test vhph=0463-5) 14 7-26 Sqkyjtsyto8806-25-33 20:35:00* Test Item Value Reference Range Comments Creatinine (test wket=7587-6) 0.59 0.57-1.11 BUN/Creatinine Blnze6732-77-16 20:35:00* Test Item Value Reference Range Comments BUN/Creatinine Ratio (test hjnq=8837-3) 24 6-25 Estimat Glomerular Filtration Lnhx5413-07-96 20:35:00* Test Item Value Reference Range Comments Estimat Glomerular Filtration Rate (test kwjr=06221-5) 60- >60 Ranges were taken from the National Kidney Disease Education Program and the [facility] literature.Reference ranges:60 or greater: Ovebic48-73 ( for 3 consecutive months): Chronic kidney disease 15 or less: Kidney failure Glucose Vjkxr3428-18-58 20:35:00* Test Item Value Reference Range Comments Glucose Level (test uhrd=OOP7859) 90 74-118 Calcium Kerjg9574-91-02 20:35:00* Test Item Value Reference Range Comments Calcium Level (test npug=34587-7) 10.2 8.4-10.2 Total Dzpmanccj0385-85-00 20:35:00* Test Item Value Reference Range Comments Total Bilirubin (test bbxu=0527-4) 0.7 0.2-1.2 Aspartate Amino Transf (AST/SGOT)2017-11-28 20:35:00* Test Item Value Reference Range Comments Aspartate Amino Transf (AST/SGOT) (test code=Aspartate Amino Transf (AST/SGOT)) 25 5-34 Alanine Aminotransferase (ALT/SGPT)2017-11-28 20:35:00* Test Item Value Reference Range Comments Alanine Aminotransferase (ALT/SGPT) (test bkbu=6972-2) 11 0-55 Total Odqhcsn9696-53-97 20:35:00* Test Item Value Reference Range Comments Total Protein (test pmaq=5573-8) 7.2 6.5-8.1 Jelhuie6505-11-76 20:35:00* Test Item Value Reference Range Comments Albumin (test hemd=7260-7) 2.9 3.5-5.0 Mzipyjwe7245-45-75 20:35:00* Test Item Value Reference Range Comments Globulin (test lnkq=18921-6) 4.3 2.3-3.5 Albumin/Globulin Oathw3020-21-14 20:35:00* Test Item Value Reference Range Comments Albumin/Globulin Ratio (test fwir=9243-3) 0.7 0.8-2.0 Alkaline Gkreosmzjhp8660-87-23 20:35:00* Test Item Value Reference Range Comments Alkaline Phosphatase (test hbzr=2398-5) 83 40-150 White Blood Ngasq7747-44-54 20:19:00* Test Item Value Reference Range Comments White Blood Count (test ijll=5015-5) 8.07 4.8-10.8 Red Blood Modfl5057-35-90 20:19:00* Test Item Value Reference Range Comments Red Blood Count (test szki=243-0) 4.14 3.6-5.1 Bhvjvggoqc0166-00-34 20:19:00* Test Item Value Reference Range Comments Hemoglobin (test tdzq=77317-4) 11.7 12.0-16.0 Ipqmtveyfs3865-40-13 20:19:00* Test Item Value Reference Range Comments Hematocrit (test tsat=4409-5) 37.0 34.2-44.1 Mean Corpuscular Nlmhcv4935-09-31 20:19:00* Test Item Value Reference Range Comments Mean Corpuscular Volume (test cmvw=914-2) 89.4 81-99 Mean Corpuscular Zuuwypocrr6093-95-05 20:19:00* Test Item Value Reference Range Comments Mean Corpuscular Hemoglobin (test fsrb=277-4) 28.3 28-32 Mean Corpuscular Hemoglobin Daszaxb7199-91-60 20:19:00* Test Item Value Reference Range Comments Mean Corpuscular Hemoglobin Concent (test jdyf=193-4) 31.6 31-35 Red Cell Distribution Oatxd8178-71-10 20:19:00* Test Item Value Reference Range Comments Red Cell Distribution Width (test zmvy=50458-5) 14.3 11.7-14.4 Platelet Mekbo0371-53-81 20:19:00* Test Item Value Reference Range Comments Platelet Count (test cxzu=096-0) 435 140-360 Neutrophils (%) (Auto)2017-11-28 20:19:00* Test Item Value Reference Range Comments Neutrophils (%) (Auto) (test txvm=97855-6) 52.6 38.7-80.0 Lymphocytes (%) (Auto)2017-11-28 20:19:00* Test Item Value Reference Range Comments Lymphocytes (%) (Auto) (test jgqd=353-4) 33.5 18.0-39.1 Monocytes (%) (Auto)2017-11-28 20:19:00* Test Item Value Reference Range Comments Monocytes (%) (Auto) (test yifr=1258-2) 9.5 4.4-11.3 Eosinophils (%) (Auto)2017-11-28 20:19:00* Test Item Value Reference Range Comments Eosinophils (%) (Auto) (test cpey=009-8) 3.2 0.0-6.0 Basophils (%) (Auto)2017-11-28 20:19:00* Test Item Value Reference Range Comments Basophils (%) (Auto) (test ktns=335-9) 1.0 0.0-1.0 IM GRANULOCYTES %2017-11-28 20:19:00* Test Item Value Reference Range Comments IM GRANULOCYTES % (test code=IM GRANULOCYTES %) 0.2 0.0-1.0 Neutrophils # (Auto)2017-11-28 20:19:00* Test Item Value Reference Range Comments Neutrophils # (Auto) (test ssjk=586-4) 4.2 2.1-6.9 Lymphocytes # (Auto)2017-11-28 20:19:00* Test Item Value Reference Range Comments Lymphocytes # (Auto) (test jhfj=22183-9) 2.7 1.0-3.2 Monocytes # (Auto)2017-11-28 20:19:00* Test Item Value Reference Range Comments Monocytes # (Auto) (test gfvg=002-7) 0.8 0.2-0.8 Eosinophils # (Auto)2017-11-28 20:19:00* Test Item Value Reference Range Comments Eosinophils # (Auto) (test iwud=303-8) 0.3 0.0-0.4 Basophils # (Auto)2017-11-28 20:19:00* Test Item Value Reference Range Comments Basophils # (Auto) (test zbxm=318-0) 0.1 0.0-0.1 Absolute Immature Granulocyte (pzhi8502-18-95 20:19:00* Test Item Value Reference Range Comments Absolute Immature Granulocyte (auto (test code=Absolute Immature Granulocyte (auto) 0.02 0-0.1
[2019-07-19] VITALS (7 sets, daily range): BP systolic 109–150; BP diastolic 53–67
[2019-07-19] MEDS ORDERED: ACETAMINOPHEN 650 MG SUPP PR ONE
[2019-07-19] MEDS ORDERED: ACETAMINOPHEN 325 MG TAB ONE (00:02)
[2019-07-19] MEDS ORDERED: CEFEPIME 1GM/NS 0.9% 50 ML 50 ML IV ONE (00:02)
[2019-07-19 00:08] LABS: BASOPHILS % 0.4 % (0.0-1.0); EOSINOPHILS # (AUTO) 0.3 (0.0-0.4); EOSINOPHILS % 3.1 % (0.0-6.0); HEMOGLOBIN 10.9 g/dL (12.0-16.0); LYMPHOCYTES # (AUTO) 2.7 (1.0-3.2); LYMPHOCYTES % 33.2 % (18.0-39.1); MEAN CORPUSCULAR HEMOGLOBIN 27.5 pg (28-32); MEAN CORPUSCULAR HGB CONC 31.1 g/dL (31-35); MEAN CORPUSCULAR VOLUME 88.4 fL (81-99); MONOCYTES # (AUTO) 0.5 (0.2-0.8); MONOCYTES % 6.2 % (4.4-11.3); NEUTROPHILS # (AUTO) 4.6 (2.1-6.9); NEUTROPHILS % 56.1 % (38.7-80.0); PLATELET COUNT 378 x10e3/uL (140-360); RED BLOOD COUNT 3.96 x10e6/uL (3.6-5.1); RED CELL DISTRIBUTION WIDTH 18.2 % (11.7-14.4)
[2019-07-19] MEDS ORDERED: ACETAMINOPHEN 325 MG TAB PO ONE (00:15)
[2019-07-19 00:28] LABS: ALANINE AMINOTRANSFERASE 12 IU/L (0-55); ALBUMIN 2.5 g/dL (3.5-5.0); ALBUMIN/GLOBULIN RATIO 0.6 (0.8-2.0); ALKALINE PHOSPHATASE 97 IU/L (40-150); ANION GAP 13.4 mmol/L (8-16); BLOOD UREA NITROGEN 19 mg/dL (7-26); BUN/CREATININE RATIO 29 (6-25); CALCIUM 9.2 mg/dL (8.4-10.2); CARBON DIOXIDE 28 mmol/L (22-29); CHLORIDE 99 mmol/L (98-107); CREATININE, SERUM 0.65 mg/dL (0.57-1.11); EST GLOMERULAR FILTRATION RATE > 60 ML/MIN (60-); GLUCOSE 91 mg/dL (74-118); POTASSIUM 4.4 mmol/L (3.5-5.1); SODIUM 136 mmol/L (136-145)
[2019-07-19] MEDS ORDERED: ASPIRIN 81 MG CHEW TAB PO ONE (01:00)
[2019-07-19 01:11] LABS: CREATINE KINASE 55 IU/L (29-168)
[2019-07-19 01:19] LABS: CREATINE KINASE MB < 1.00 ng/mL (0-4.3)
--- NOTE | 2019-07-19 01:35 | Diagnostic Imaging Report ---
EXAMINATION: CHEST SINGLE (PORTABLE) INDICATION: Hypoxia, fever COMPARISON: None FINDINGS: TUBES and LINES: None. LUNGS: Low lung volumes. Right perihilar and left mid lower lung haziness. Mild central bronchial wall thickening. PLEURA: No pleural effusion or pneumothorax. HEART AND MEDIASTINUM: The cardiomediastinal silhouette is unremarkable. There are atherosclerotic calcifications within the aorta. BONES AND SOFT TISSUES: Degenerative changes in the spine and shoulders. Soft tissues are unremarkable. UPPER ABDOMEN: No free air under the diaphragm. IMPRESSION: Finding is concerning for multifocal pneumonia, possibly viral. Signed by: Fabio Vasquez DO on 07/19/2019 1:32 AM
[2019-07-19] MEDS ORDERED: CEFEPIME HCL 1 GM VIAL IV SCH (06:00)
[2019-07-19] MEDS: AZITHROMYCIN 500MG/NS 250 ML 250 ML IV SCH (07:40)
[2019-07-19] MEDS ORDERED: LISINOPRIL10 MG PO (09:14)
[2019-07-19] MEDS ORDERED: METOPROLOL TART25 MG PO (09:14)
[2019-07-19] MEDS ORDERED: ATORVASTATIN CA10 MG PO (09:14)
[2019-07-19] MEDS ORDERED: HYDROCODON-ACE1 EA12 PO (09:14)
[2019-07-19] MEDS ORDERED: PREDNISONE10 MG PO (09:14)
[2019-07-19] MEDS ORDERED: PANTOPRAZOLE SO40 MG PO (09:14)
[2019-07-19] MEDS ORDERED: MORPHINE SULFAT30 M2 PO (09:14)
[2019-07-19] MEDS ORDERED: DOCUSATE SODIU100 MG PO (09:14)
[2019-07-19] MEDS ORDERED: TYLENOL325 M2 PO (09:14)
[2019-07-19] MEDS ORDERED: ENOXAPARIN30 MG/0.3 SQ (09:14)
[2019-07-19] MEDS ORDERED: LIDOCAINE PAIN1 EACH TOP (09:14)
[2019-07-19] MEDS ORDERED: TRAZODONE HCL50 MG PO (09:14)
[2019-07-19] MEDS ORDERED: HYDROCODONE/APAP 7.5MG-325MG 1 EA TAB PO PRN (09:45)
[2019-07-19] MEDS ORDERED: ACETAMINOPHEN 325 MG TAB PO PRN (10:15)
[2019-07-19] MEDS: PANTOPRAZOLE SOD 40 MG TABEC PO SCH (11:05)
[2019-07-19] MEDS: MORPHINE SULFATE 30 MG TAB ER PO SCH ×2 (11:05→21:24)
[2019-07-19] MEDS: PREDNISONE 10 MG TAB PO SCH (11:05)
[2019-07-19] MEDS: LIDOCAINE 4% PATCH TP SCH (11:06)
[2019-07-19] MEDS: CEFEPIME 1GM/NS 0.9% 50 ML 50 ML IV SCH ×2 (12:48→18:07)
[2019-07-19] MEDS: SODIUM CHLORIDE 0.9% 1000ML 1,000 ML IV SCH (14:25)
[2019-07-19] MEDS: DOCUSATE SODIUM 100 MG CAP PO SCH (15:36)
--- NOTE | 2019-07-19 15:44 | Consultation ---
DATE OF CONSULTATION: REASON FOR CONSULTATION: Shortness of breath. HISTORY OF PRESENT ILLNESS: Ms. Stewart, who is 74-year-old female, comes from a [facility] for shortness of breath. There is no fever and no cough. She says she was not feeling well. She lives in [place]. She was hypoxemic, however, since she came to our hospital, she is not. She is currently lying in bed, comfortable. She said she is just not feeling well in general, but there is really no specific complaints that she is complaining of. MEDICATIONS LIST: She is currently on cefepime, Lidoderm, prednisone 10 mg daily, MS Contin, azithromycin, Tylenol, Lovenox, atorvastatin. PAST MEDICAL HISTORY: Hypercholesteremia and hypertension. SOCIAL HISTORY: From [facility]. No smoking, drug abuse, or alcohol abuse. FAMILY HISTORY: Otherwise noncontributory. LABORATORY DATA: White count of 8.1 and hemoglobin 10.9. Sodium 135, potassium 4.4 with creatinine 0.65. Her respiratory panel was negative. Her COVID-19 was negative. PHYSICAL EXAMINATION: GENERAL: She is currently alert, oriented, does not seem to be in acute distress. VITAL SIGNS: Stable, currently afebrile, when she first came she had a fever of 100.0. HEENT: She is not icteric. NECK: Supple. CHEST: Clear. HEART: S1, S2. No S3, S4, or murmur. ABDOMEN: Soft. Bowel sounds present. EXTREMITIES: No edema. SKIN: No rash. IMAGING DATA: She had a chest x-ray, which showed multifocal pneumonia, possibly viral. IMPRESSION: The patient has general feeling of not feeling well. The patient's initial tests are negative. We will order BNP, concerned about congestive heart failure. PLAN: Keep the patient in droplet, but the repeat test came back negative, can leave COVID unit and just treat her for community-acquired pneumonia. We will follow. MD YELITZA Cordova/ZOIE /[id number]
[2019-07-19] MEDS: TRAZODONE HCL 50 MG TAB PO SCH (21:23)
[2019-07-19] MEDS: ENOXAPARIN 30 MG/0.3 ML SYR SC SCH (21:23)
[2019-07-19] MEDS: ATORVASTATIN 10 MG TAB PO SCH (21:23)
--- NOTE | 2019-07-19 21:50 | Consultation ---
DATE OF CONSULTATION: Pulmonary Consultation REASON FOR CONSULT: Shortness of breath. HISTORY OF PRESENT ILLNESS: Ms. Joshua is a 74-year-old female. She is [place] the [place], came in with fever and no cough. She says that she was doing well at [facility]. She was hypoxemic. Now, she is on room air. She denies any complaints of chest pain, nausea, vomiting, or diarrhea. REVIEW OF SYSTEMS: GENERAL: Was having fever and chills. HEAD: Denies any head trauma. ENT: Denies any earache. CVS: Denies any chest pain. RESPIRATORY: Shortness of breath. The rest of the review of systems are negative except as in HPI. PAST MEDICAL HISTORY: Records from [facility] shows the patient has a history of hypertension, hyperlipidemia, and obesity. FAMILY AND SOCIAL HISTORY: She does not smoke. Does not drink. PHYSICAL EXAMINATION: VITAL SIGNS: Temperature 97.6, pulse of 87, blood pressure 115/55, respiratory rate of 18. CHEST: Clear. ABDOMEN: Soft. NEUROLOGIC: Awake and alert. No focal neurologic deficit. LABORATORY DATA: Labs reviewed. COVID-19 is pending. Chest x-ray is showing multifocal infiltrate. ASSESSMENT/PLAN: Ms. Joshua is a 74-year-old female with pneumonia, COVID-19 is pending. IV antibiotics per ID. Oxygen as needed to keep the O2 saturation more than or equal to 92%. MD SHAREE Lunsford/ZOIE /[id number]
[2019-07-20] VITALS (8 sets, daily range): BP systolic 110–152; BP diastolic 52–77
[2019-07-20] MEDS: CEFEPIME 1GM/NS 0.9% 50 ML 50 ML IV SCH ×3 (02:10→18:59)
[2019-07-20] MEDS: SODIUM CHLORIDE 0.9% 1000ML 1,000 ML IV SCH ×2 (03:35→16:30)
--- NOTE | 2019-07-20 06:31 | Progress Note ---
DATE: SUBJECTIVE: The patient is feeling a little bit better overnight and has less shortness of breath. PHYSICAL EXAMINATION: VITAL SIGNS: Temperature 97.6, blood pressure 147/67, pulse 82, and sats 100%. GENERAL: She is in no apparent distress, lying in bed, able to speak full sentences as well as shortness of breath. CARDIOVASCULAR: Regular rate and rhythm. LUNGS: Decreased breath sounds. ABDOMEN: Good bowel sounds. Soft, nontender. EXTREMITIES: No clubbing or cyanosis. NEUROLOGIC: Nonfocal. ASSESSMENT AND PLAN: 1. Pneumonia, most likely viral. Continue current care with antibiotics and waiting on a repeat COVID-19 testing. 2. Reflux disease. Continue with proton pump inhibitor. 3. Hyperlipidemia. Continue with her atorvastatin. 4. Anemia. Continue to monitor. 5. Respiratory failure with hypoxia. Continue to monitor. Please see hospital chart for details. MD KRISTIE Salinas/ZOIE /[id number]
[2019-07-20] MEDS: AZITHROMYCIN 500MG/NS 250 ML 250 ML IV SCH (06:36)
[2019-07-20] MEDS: DOCUSATE SODIUM 100 MG CAP PO SCH ×2 (07:54→16:31)
[2019-07-20] MEDS: PANTOPRAZOLE SOD 40 MG TABEC PO SCH (07:54)
[2019-07-20] MEDS: LIDOCAINE 4% PATCH TP SCH (07:54)
[2019-07-20] MEDS: PREDNISONE 10 MG TAB PO SCH (07:54)
[2019-07-20] MEDS ORDERED: NON-FORMULARY MEDICATION (Lidocaine (Lidocaine Pain Relief) 1 PATCH) TOP SCH (09:00)
[2019-07-20] MEDS: LISINOPRIL 10 MG TAB PO SCH (10:54)
[2019-07-20] MEDS: MORPHINE SULFATE 30 MG TAB ER PO SCH ×2 (10:54→21:45)
[2019-07-20 15:27] LABS: CLARITY,URINE SL CLOUDY (CLEAR); COLOR,URINE YELLOW (YELLOW); LEUKOCYTE ESTERASE ,URINE NEGATIVE (NEGATIVE); NITRITE,URINE NEGATIVE (NEGATIVE)
[2019-07-20 15:28] LABS: BILIRUBIN,URINE NEGATIVE (NEGATIVE); KETONES,URINE NEGATIVE (NEGATIVE); PROTEIN,URINE DIPSTICK NEGATIVE (NEGATIVE); URINE UROBILINOGEN 0.2 mg/dL (0.2 - 1)
[2019-07-20 15:41] LABS: BACTERIA,URINE FEW /HPF; EPITHELIAL CELLS,URINE MODERATE /LPF
[2019-07-20] MEDS: METOPROLOL TARTRATE 25 MG TAB PO SCH (16:31)
--- NOTE | 2019-07-20 18:13 | Progress Note ---
DATE: SUBJECTIVE: Ms. Joshua is doing better today. There are no new complaint. Her shortness of breath has improved. There is no fever. REVIEW OF SYSTEMS: Otherwise unremarkable. OBJECTIVE: VITAL SIGNS: Stable. HEENT: She is not icteric. NECK: Supple. CHEST: Clear anteriorly. COR: S1, S2. No S3, S4, or murmur. ABDOMEN: Soft. Bowel sounds present. EXTREMITIES: No edema. SKIN: No rash. LABORATORY DATA: Reviewed. There is really nothing new and we are still waiting on repeat COVID-19. IMPRESSION: Shortness of breath and pneumonia present on admission, concern aspiration versus other. Continue with current choice of IV antibiotic. She is currently on cefepime, clinically doing better. Can discontinue azithromycin. We are waiting for COVID-19 and tell if that is negative, can leave the unit and discontinue droplet isolation. MD YELITZA Cordova/ZOIE /[id number]
[2019-07-20] MEDS: ENOXAPARIN 30 MG/0.3 ML SYR SC SCH (21:00)
[2019-07-20] MEDS: ATORVASTATIN 10 MG TAB PO SCH (21:06)
[2019-07-20] MEDS: TRAZODONE HCL 50 MG TAB PO SCH (21:06)
[2019-07-21] VITALS (8 sets, daily range): BP systolic 99–164; BP diastolic 51–76
[2019-07-21] MEDS: CEFEPIME 1GM/NS 0.9% 50 ML 50 ML IV SCH ×3 (02:00→17:30)
[2019-07-21 05:20] LABS: BASOPHILS % 0.7 % (0.0-1.0); EOSINOPHILS # (AUTO) 0.3 (0.0-0.4); EOSINOPHILS % 5.1 % (0.0-6.0); HEMATOCRIT 29.9 % (34.2-44.1); HEMOGLOBIN 9.5 g/dL (12.0-16.0); LYMPHOCYTES % 36.3 % (18.0-39.1); MEAN CORPUSCULAR HEMOGLOBIN 27.6 pg (28-32); MEAN CORPUSCULAR HGB CONC 31.8 g/dL (31-35); MEAN CORPUSCULAR VOLUME 86.9 fL (81-99); MONOCYTES # (AUTO) 0.4 (0.2-0.8); MONOCYTES % 7.6 % (4.4-11.3); NEUTROPHILS # (AUTO) 2.7 (2.1-6.9); NEUTROPHILS % 49.2 % (38.7-80.0); PLATELET COUNT 381 x10e3/uL (140-360); RED BLOOD COUNT 3.44 x10e6/uL (3.6-5.1); RED CELL DISTRIBUTION WIDTH 17.7 % (11.7-14.4)
[2019-07-21 05:47] LABS: ALANINE AMINOTRANSFERASE 9 IU/L (0-55); ALBUMIN 2.1 g/dL (3.5-5.0); ALBUMIN/GLOBULIN RATIO 0.6 (0.8-2.0); ALKALINE PHOSPHATASE 68 IU/L (40-150); ANION GAP 6.5 mmol/L (8-16); BLOOD UREA NITROGEN 11 mg/dL (7-26); BUN/CREATININE RATIO 20 (6-25); CALCIUM 8.9 mg/dL (8.4-10.2); CARBON DIOXIDE 28 mmol/L (22-29); CHLORIDE 109 mmol/L (98-107); CREATININE, SERUM 0.54 mg/dL (0.57-1.11); EST GLOMERULAR FILTRATION RATE > 60 ML/MIN (60-); GLUCOSE 80 mg/dL (74-118); POTASSIUM 3.5 mmol/L (3.5-5.1); SODIUM 140 mmol/L (136-145)
--- NOTE | 2019-07-21 06:06 | Diagnostic Imaging Report ---
EXAMINATION: CHEST SINGLE (PORTABLE) INDICATION: cap COMPARISON: Chest radiograph 07/18/2019. FINDINGS: TUBES and LINES: None. LUNGS: Low lung volumes. Decreased right perihilar and left mid/lower lung zone opacities. Mild central bronchial wall thickening. PLEURA: No pleural effusion or pneumothorax. HEART AND MEDIASTINUM: The cardiomediastinal silhouette is unremarkable. There are atherosclerotic calcifications within the aorta. BONES AND SOFT TISSUES: No acute osseus abnormality. Soft tissues are unremarkable. UPPER ABDOMEN: No free air under the diaphragm. IMPRESSION: Decreased bilateral opacities may represent infection in the appropriate clinical setting. No lobar pneumonia. Signed by: Dr. Charu Patel MD on 07/21/2019 6:02 AM
[2019-07-21] MEDS: SODIUM CHLORIDE 0.9% 1000ML 1,000 ML IV SCH (06:15)
[2019-07-21] MEDS: METOPROLOL TARTRATE 25 MG TAB PO SCH ×2 (07:53→17:03)
[2019-07-21] MEDS: LISINOPRIL 10 MG TAB PO SCH (07:53)
[2019-07-21] MEDS: DOCUSATE SODIUM 100 MG CAP PO SCH ×2 (07:53→15:57)
[2019-07-21] MEDS: LIDOCAINE 4% PATCH TP SCH (08:05)
[2019-07-21] MEDS: PANTOPRAZOLE SOD 40 MG TABEC PO SCH (08:05)
[2019-07-21] MEDS: AZITHROMYCIN 500MG/NS 250 ML 250 ML IV SCH (08:05)
[2019-07-21] MEDS: PREDNISONE 10 MG TAB PO SCH (08:05)
[2019-07-21] MEDS: MORPHINE SULFATE 30 MG TAB ER PO SCH ×2 (10:37→21:40)
--- NOTE | 2019-07-21 18:17 | Progress Note ---
DATE: SUBJECTIVE: Ms. Joshua is doing better. She is more alert, less short of breath and minimum cough. REVIEW OF SYSTEMS: She remains weak, almost back to her baseline. Her review of systems is otherwise unremarkable . PHYSICAL EXAMINATION: GENERAL: She is alert. VITAL SIGNS: Stable. Afebrile. HEENT: She is not icteric. NECK: Supple. CHEST: Clear. COR: S1, S2. No S3, S4, or murmur. ABDOMEN: Soft. Bowel sounds present. EXTREMITIES: No edema. SKIN: No rash. IMPRESSION: Pneumonia aspiration, improving. PLAN: To finish 5 days of IV cefepime. The patient can be discharged. Her COVID-19 is negative x2, so we can discontinue isolation and drop the isolation. She can go to medical floor. She will be discharged to skilled care facility. MD YELITZA Cordova/ZOIE /[id number]
[2019-07-21] MEDS: ENOXAPARIN 30 MG/0.3 ML SYR SC SCH (20:35)
[2019-07-21] MEDS: TRAZODONE HCL 50 MG TAB PO SCH (20:35)
[2019-07-21] MEDS: ATORVASTATIN 10 MG TAB PO SCH (20:35)
[2019-07-22] VITALS: BP 125/59
[2019-07-22] MEDS: CEFEPIME 1GM/NS 0.9% 50 ML 50 ML IV SCH ×2 (02:43→10:19)
[2019-07-22 04:00] VITALS: BP 125/59
[2019-07-22] MEDS: SODIUM CHLORIDE 0.9% 1000ML 1,000 ML IV SCH ×2 (04:21→08:55)
--- NOTE | 2019-07-22 06:24 | Discharge Summary ---
DISCHARGE DIAGNOSES: 1. Pneumonia, shelter acquired, ruled out coronavirus disease 2019 x2. 2. Acute respiratory failure with hypoxia. HISTORY OF PRESENT ILLNESS AND HOSPITAL COURSE: The patient is a lady, who presented from shelter with fever. X-ray worrisome for viral pneumonia. Normal white count and O2 sats in the 80s. She is ruled out for COVID-19 x2. She was placed on IV antibiotics. When she ruled out for COVID-19, she was taken out of isolation. Each day, she improved tremendously where she did not need oxygen. After within less than 24 hours, she was able to be weaned off the oxygen. At the time of discharge, she was ambulating well without any decreased O2 saturation. No fever. Laboratory data was unremarkable. I had a discussion with the patient regarding going back to the [place] [facility] facility that she refuses. So, she will be discharged home with continuation of her home medication and discharged with p.o. Ceftin 250 mg b.i.d. for 7 more days to complete her pneumonia treatment. She is to follow up in 1 week with me either through telemedicine or in the office or return back to the emergency room if she gets any worse. Please see discharge med rec for discharge medications. Diet is as tolerated. Activities as tolerated. Please see hospital chart for full details. MD KRISTIE Salinas/ZOIE /[id number]
[2019-07-22 08:16] VITALS: BP 152/77
[2019-07-22] MEDS: DOCUSATE SODIUM 100 MG CAP PO SCH (09:07)
[2019-07-22] MEDS: LISINOPRIL 10 MG TAB PO SCH (09:08)
[2019-07-22] MEDS: MORPHINE SULFATE 30 MG TAB ER PO SCH (09:08)
[2019-07-22] MEDS: LIDOCAINE 4% PATCH TP SCH (09:08)
[2019-07-22] MEDS: METOPROLOL TARTRATE 25 MG TAB PO SCH (09:08)
[2019-07-22] MEDS: PANTOPRAZOLE SOD 40 MG TABEC PO SCH (09:08)
[2019-07-22 09:35] VITALS: BP 152/77
[2019-07-22 11:57] VITALS: BP 147/97
--- NOTE | 2019-07-22 17:27 | Progress Note ---
DATE: SUBJECTIVE: Ms. Joshua is a pleasant 74-year-old female diagnosed with aspiration pneumonia. REVIEW OF SYSTEMS: Currently comfortable in bed, in no acute distress. The second time the patient was seen and she was sitting in a chair, complaining of chronic aching of the bilateral upper extremities with a history of arthritis. No nausea. No fever. No chills. No chest pain. No shortness of breath. No headache. No dysuria. No polyuria. OBJECTIVE: VITAL SIGNS: Temperature is 97.7, pulse 73, respirations 18, and blood pressure 152/77. GENERAL: Alert and oriented, in no acute distress. CV: S1, S2. CHEST: Equal expansion, clear to auscultation, in no acute distress. ABDOMEN: Soft and nontender. No distention. HEENT: Moist. No pallor. NECK: No JVD. EXTREMITIES: With some arthritic changes of the digits. MEDICATIONS: Medication list reviewed. As far as Infectious Disease point of view, the patient is on cefepime. LABORATORY STUDIES: White blood cells 5.51, hemoglobin 9.5, and platelets 381. Sodium 140, potassium 3.5, and creatinine 0.54. Serology, COVID-19 negative on 07/17 and 07/18. Other serologies negative and rhinovirus, RSV, influenza, adenovirus, and other coronaviruses including human metapneumovirus PCR negative. RADIOGRAPHIC DATA: No new radiology studies available. Chest x-ray from 07/20 shows decreased bilateral opacities may represent infection in appropriate clinical setting. ASSESSMENT: 1. Aspiration pneumonia. 2. Hypertension. 3. Debility. 4. Hyperlipidemia. 5. Chronic pain. PLAN: The patient is on cefepime. Discharge planning in progress. This case was discussed with Dr. Upton in detail. Prescription is in charge for Ceftin 250 mg p.o. b.i.d. #14 by attending. Please refer to chart for more information. Dictated by Apolinar Ferris PA-C (Al) Henry Upton MD /MODL /[id number]
== END 2019-07-22 13:49 | disposition home or self-care (01) | DRG 177 ==
LOC: ER 23:32 → ERHOLD 07-19 05:12 → IMCU 07-19 09:03 → MED/SURG2 07-21 18:28
PROVIDERS: ADMIT Internal Medicine; ATTEND Internal Medicine
DX: J69.0 Pneumonitis due to inhalation of food and vomit (principal); J96.01 Acute respiratory failure with hypoxia; E78.00 Pure hypercholesterolemia, unspecified; I10 Essential (primary) hypertension; K21.9 Gastro-esophageal reflux disease without esophagitis; D64.9 Anemia, unspecified; G89.29 Other chronic pain; R53.81 Other malaise
CPT/HCPCS: 36415; 71045; 80053; 81001; 82550; 82553; 82728; 83605; 83880; 84484; 85025; 85379; 87040; 87086; 87633; 87635; 96361; 97139; 99285; J0456; J0692; J1650; J7030; J7512

== ENCOUNTER 2021-03-22 14:46 | Emergency (ER) | payer MEDICARE ==
[~2021-03-22] VITALS: Ht 152.4 cm; Wt 68.0 kg
[~2021-03-22 14:46] MED LIST: ATORVASTATIN CA10 MG PO; DOCUSATE SODIU100 MG PO; ENOXAPARIN30 MG/0.3 SQ; HYDROCODON-ACE1 EA12 PO; LIDOCAINE PAIN1 EACH TOP; LISINOPRIL10 MG PO; METOPROLOL TART25 MG PO; MORPHINE SULFAT30 M2 PO; PANTOPRAZOLE SO40 MG PO; PREDNISONE10 MG PO; TRAZODONE HCL50 MG PO; TYLENOL325 M2 PO
[2021-03-22 15:55] LABS: BASOPHILS % 0.1 % (0.0-1.0); HEMATOCRIT 31.4 % (34.2-44.1); HEMOGLOBIN 8.9 g/dL (12.0-16.0); LYMPHOCYTES # (AUTO) 0.7 (1.0-3.2); MEAN CORPUSCULAR HEMOGLOBIN 24.8 pg (28-32); MEAN CORPUSCULAR HGB CONC 28.3 g/dL (31-35); MEAN CORPUSCULAR VOLUME 87.5 fL (81-99); MONOCYTES # (AUTO) 0.3 (0.2-0.8); MONOCYTES % 2.1 % (4.4-11.3); NEUTROPHILS # (AUTO) 13.4 (2.1-6.9); NEUTROPHILS % 91.9 % (38.7-80.0); PLATELET COUNT 325 x10e3/uL (140-360); RED BLOOD COUNT 3.59 x10e6/uL (3.6-5.1); RED CELL DISTRIBUTION WIDTH 18.3 % (11.7-14.4)
[2021-03-22 16:10] LABS: INR 1.07; PROTHROMBIN TIME 14.8 seconds (11.9-14.5)
[2021-03-22 16:11] LABS: PARTIAL THROMBOPLASTIN TIME 28.3 seconds (23.8-35.5)
[2021-03-22 16:17] LABS: CLARITY,URINE CLEAR (CLEAR); COLOR,URINE YELLOW (YELLOW); LEUKOCYTE ESTERASE ,URINE TRACE (NEGATIVE); NITRITE,URINE NEGATIVE (NEGATIVE)
[2021-03-22 16:18] LABS: KETONES,URINE NEGATIVE (NEGATIVE); PROTEIN,URINE DIPSTICK 1+ (NEGATIVE); URINE UROBILINOGEN 0.2 mg/dL (0.2 - 1)
[2021-03-22 16:19] LABS: ALBUMIN 2.7 g/dL (3.5-5.0); ALBUMIN/GLOBULIN RATIO 0.8 (0.8-2.0); CALCIUM 9.1 mg/dL (8.4-10.2); CREATININE, SERUM 0.56 mg/dL (0.57-1.11)
[2021-03-22 16:26] LABS: CREATINE KINASE MB 0.9 ng/mL (0-5.0)
[2021-03-22 16:53] LABS: BACTERIA,URINE MANY /HPF; EPITHELIAL CELLS,URINE MANY /LPF; RENAL EPITHELIAL CELLS,URINE FEW; WBC,URINE (MAN) 21-50 /HPF (0-5)
[2021-03-22] MEDS ORDERED: CEPHALEXIN500 MG PO (21:27)
[2021-03-22] MEDS ORDERED: SODIUM CHLORIDE 0.9% 100 ML ONE (21:30)
[2021-03-22] MEDS ORDERED: IOPAMIDOL 370 MG/ML 200 ML INFUS..BTL INJ ONE (21:30)
== END 2021-03-22 22:07 | disposition home or self-care (01) ==
LOC: ER 14:54
DX: N39.0 Urinary tract infection, site not specified (principal); E04.1 Nontoxic single thyroid nodule; I70.0 Atherosclerosis of aorta; I10 Essential (primary) hypertension; M81.0 Age-related osteoporosis without current pathological fracture; E78.5 Hyperlipidemia, unspecified; K21.9 Gastro-esophageal reflux disease without esophagitis; F41.9 Anxiety disorder, unspecified; Z79.899 Other long term (current) drug therapy; Z86.2 Personal history of diseases of the blood and blood-forming organs and certain disorders involving the immune mechanism
CPT/HCPCS: 36415; 71275; 74174; 80053; 81001; 82550; 82553; 83880; 84484; 85025; 85610; 85730; 93005; 99284; J7050; Q9967

== ENCOUNTER 2021-10-17 16:32 | Inpatient (IN) | payer MEDICARE ==
[~2021-10-17] VITALS: Ht 154.9 cm; Wt 58.9 kg
[~2021-10-17 16:32] MED LIST changes: +CEPHALEXIN500 MG PO; +ETOMIDATE 2 MG/ML 10 ML INJ IV ONE; +MIDAZOLAM HCL 2 MG/2 ML VIAL ONE; +WATER STERILE 10 ML VIAL ONE
[2021-10-17] MEDS ORDERED: OCTREOTIDE ACETATE 0.05 MG/ML AMP IV ONE (16:45)
[2021-10-17] MEDS ORDERED: SODIUM CHLORIDE FLUSH 10 ML SYR IV PRN (16:45)
[2021-10-17 17:08] LABS: BASOPHILS % 0.3 % (0.0-1.0); EOSINOPHILS % 0.3 % (0.0-6.0); HEMATOCRIT 24.4 % (34.2-44.1); HEMOGLOBIN 7.3 g/dL (12.0-16.0); LYMPHOCYTES # (AUTO) 0.8 (1.0-3.2); LYMPHOCYTES % 11.2 % (18.0-39.1); MEAN CORPUSCULAR HEMOGLOBIN 24.5 pg (28-32); MEAN CORPUSCULAR HGB CONC 29.9 g/dL (31-35); MEAN CORPUSCULAR VOLUME 81.9 fL (81-99); MONOCYTES # (AUTO) 0.2 (0.2-0.8); MONOCYTES % 3.2 % (4.4-11.3); NEUTROPHILS # (AUTO) 6.3 (2.1-6.9); NEUTROPHILS % 84.6 % (38.7-80.0); PLATELET COUNT 505 x10e3/uL (140-360); RED BLOOD COUNT 2.98 x10e6/uL (3.6-5.1)
[2021-10-17] MEDS ORDERED: SODIUM CHLORIDE 0.9% 250ML 250 ML IV ONE (17:15)
[2021-10-17 17:18] LABS: INR 1.73; PROTHROMBIN TIME 21.6 seconds (11.9-14.5)
[2021-10-17 17:19] LABS: PARTIAL THROMBOPLASTIN TIME 42.4 seconds (23.8-35.5)
[2021-10-17 17:26] LABS: ALBUMIN 1.8 g/dL (3.5-5.0); ALBUMIN/GLOBULIN RATIO 0.5 (0.8-2.0); ANION GAP 14.8 mmol/L (8-16); CREATININE, SERUM 0.72 mg/dL (0.57-1.11); POTASSIUM 3.8 mmol/L (3.5-5.1)
[2021-10-17] MEDS: OCTREOTIDE ACETATE 500 MCG in SODIUM CHLORIDE 0.9% 250ML 250 ML IV SCH (18:29)
[2021-10-17] MEDS ORDERED: IOPAMIDOL 370 MG/ML 100 ML INFUS..BTL INJ ONE (18:58)
[2021-10-17] MEDS ORDERED: SODIUM CHLORIDE 0.9% 100 ML ONE (18:58)
[2021-10-17] MEDS ORDERED: SODIUM CHLORIDE 0.9% 250ML 250 ML ONE (22:12)
[2021-10-17 22:38] VITALS: BP 120/80
[2021-10-17 22:45] VITALS: BP 120/80
[2021-10-17 23:00] VITALS: BP 113/61
[2021-10-17 23:15] VITALS: BP 129/95
[2021-10-18] VITALS (73 sets, daily range): BP systolic 60–141; BP diastolic 30–118
[2021-10-18 00:12] LABS: FERRITIN 101.99 ng/mL (4.63-204.00)
[2021-10-18] MEDS ORDERED: ONDANSETRON HCL INJ 2MG/ML 2ML 2 MG/ML VIAL IV PRN (01:00)
[2021-10-18] MEDS ORDERED: HYDRALAZINE HCL 20 MG/ML VIAL IV PRN (01:00)
[2021-10-18] MEDS ORDERED: GUAIFENESIN/DEXTROMETHORPHAN LIQD 5 ML UDC PO PRN (01:00)
[2021-10-18] MEDS ORDERED: MAGNESIUM/ALUMINUM/SIMETHICONE 30 ML UDC PO PRN (01:00)
[2021-10-18] MEDS ORDERED: SODIUM CHLORIDE 0.9% 250ML 250 ML ONE ×3 (01:28→08:20)
[2021-10-18] MEDS: OCTREOTIDE ACETATE 500 MCG in SODIUM CHLORIDE 0.9% 250ML 250 ML IV SCH ×3 (04:31→18:00)
[2021-10-18 06:10] LABS: INR 1.39; PROTHROMBIN TIME 18.2 seconds (11.9-14.5)
[2021-10-18 06:44] LABS: ANION GAP 16.9 mmol/L (8-16); CALCIUM 7.7 mg/dL (8.4-10.2); CREATININE, SERUM 0.73 mg/dL (0.57-1.11)
[2021-10-18 06:49] LABS: POTASSIUM 2.9 mmol/L (3.5-5.1)
[2021-10-18 07:09] LABS: BASOPHILS % 0.2 % (0.0-1.0); EOSINOPHILS % 0.3 % (0.0-6.0); HEMATOCRIT 23.1 % (34.2-44.1); LYMPHOCYTES # (AUTO) 1.3 (1.0-3.2); LYMPHOCYTES % 10.5 % (18.0-39.1); MEAN CORPUSCULAR HEMOGLOBIN 25.5 pg (28-32); MEAN CORPUSCULAR HGB CONC 30.3 g/dL (31-35); MEAN CORPUSCULAR VOLUME 84.3 fL (81-99); MONOCYTES # (AUTO) 0.7 (0.2-0.8); MONOCYTES % 5.6 % (4.4-11.3); NEUTROPHILS # (AUTO) 10.1 (2.1-6.9); NEUTROPHILS % 82.5 % (38.7-80.0); PLATELET COUNT 349 x10e3/uL (140-360); RED BLOOD COUNT 2.74 x10e6/uL (3.6-5.1); RED CELL DISTRIBUTION WIDTH 19.5 % (11.7-14.4)
[2021-10-18] MEDS ORDERED: ACETAMINOPHEN 1000 MG/100 ML IV ONE (08:00)
[2021-10-18] MEDS: DOCUSATE SODIUM 100 MG CAP PO SCH ×2 (09:00→17:00)
[2021-10-18] MEDS: METOPROLOL TARTRATE 25 MG TAB PO SCH ×2 (09:00→17:00)
[2021-10-18] MEDS: MULTIVITAMINS/MINERALS TAB PO SCH (09:00)
[2021-10-18] MEDS: NOREPINEPHRINE 8 MG/D5W 250 ML 250 ML IV SCH ×2 (10:17→20:27)
[2021-10-18] MEDS ORDERED: HEPARIN SOD (PORCINE) 1000 UNIT/ML SDV ONE (10:30)
[2021-10-18] MEDS: POTASSIUM CHLORIDE 20MEQ/100ML 100 ML IV SCH ×2 (10:35→13:00)
[2021-10-18] MEDS: LIDOCAINE 4% PATCH TP SCH (10:41)
[2021-10-18 15:07] LABS: HEMATOCRIT 30.5 % (34.2-44.1); HEMOGLOBIN 9.6 g/dL (12.0-16.0)
[2021-10-18 18:32] LABS: HEMATOCRIT 31.1 % (34.2-44.1); HEMOGLOBIN 10.1 g/dL (12.0-16.0)
[2021-10-18] MEDS ORDERED: LACTATED RINGER'S 500 ML IV ONE (20:00)
[2021-10-18] MEDS: ATORVASTATIN 10 MG TAB PO SCH (21:00)
[2021-10-18] MEDS: TRAZODONE HCL 50 MG TAB PO SCH (21:00)
[2021-10-18] MEDS ORDERED: IOPAMIDOL 370 MG/ML 100 ML INFUS..BTL INJ ONE (21:39)
[2021-10-19] VITALS (71 sets, daily range): BP systolic 72–137; BP diastolic 47–101
[2021-10-19 00:06] LABS: HEMATOCRIT 26.7 % (34.2-44.1); HEMOGLOBIN 8.6 g/dL (12.0-16.0)
[2021-10-19] MEDS: OCTREOTIDE ACETATE 500 MCG in SODIUM CHLORIDE 0.9% 250ML 250 ML IV SCH ×2 (01:23→22:29)
[2021-10-19] MEDS: NOREPINEPHRINE 8 MG/D5W 250 ML 250 ML IV SCH (01:23)
[2021-10-19] MEDS ORDERED: SODIUM CHLORIDE 0.9% 250ML 250 ML ONE ×2 (02:20→06:45)
[2021-10-19 05:47] LABS: BASOPHILS # (AUTO) 0.1 (0.0-0.1); BASOPHILS % 0.3 % (0.0-1.0); EOSINOPHILS # (AUTO) 0.1 (0.0-0.4); EOSINOPHILS % 0.3 % (0.0-6.0); HEMATOCRIT 37.6 % (34.2-44.1); HEMOGLOBIN 12.8 g/dL (12.0-16.0); LYMPHOCYTES # (AUTO) 1.4 (1.0-3.2); LYMPHOCYTES % 5.5 % (18.0-39.1); MEAN CORPUSCULAR HEMOGLOBIN 28.8 pg (28-32); MEAN CORPUSCULAR VOLUME 84.5 fL (81-99); MONOCYTES # (AUTO) 0.9 (0.2-0.8); MONOCYTES % 3.3 % (4.4-11.3); NEUTROPHILS # (AUTO) 23.7 (2.1-6.9); NEUTROPHILS % 89.7 % (38.7-80.0); PLATELET COUNT 245 x10e3/uL (140-360); RED BLOOD COUNT 4.45 x10e6/uL (3.6-5.1); RED CELL DISTRIBUTION WIDTH 15.9 % (11.7-14.4)
[2021-10-19 06:19] LABS: ALBUMIN 1.7 g/dL (3.5-5.0); ALBUMIN/GLOBULIN RATIO 0.5 (0.8-2.0); ANION GAP 14.3 mmol/L (8-16); CALCIUM 7.6 mg/dL (8.4-10.2); CREATININE, SERUM 0.68 mg/dL (0.57-1.11); POTASSIUM 3.3 mmol/L (3.5-5.1)
[2021-10-19] MEDS: DOCUSATE SODIUM 100 MG CAP PO SCH ×2 (07:23→17:00)
[2021-10-19] MEDS: METOPROLOL TARTRATE 25 MG TAB PO SCH ×2 (07:24→17:00)
[2021-10-19] MEDS ORDERED: POTASSIUM CHLORIDE 20MEQ/100ML 200 ML IV ONE (08:00)
[2021-10-19] MEDS ORDERED: SODIUM CHLORIDE 0.45% 1,000 ML IV ONE (08:15)
[2021-10-19] MEDS ORDERED: DEXTROSE 5%/0.45% SOD CHL 1,000 ML IV ONE (08:45)
[2021-10-19] MEDS: LIDOCAINE 4% PATCH TP SCH (09:00)
[2021-10-19] MEDS: MULTIVITAMINS/MINERALS TAB PO SCH (09:00)
[2021-10-19 09:41] LABS: BAND NEUTROPHILS % (MANUAL) 11 %; EOSINOPHILS % (MANUAL) 1 % (0-7); LYMPHOCYTES % (MANUAL) 6 % (19-48); MONOCYTES % (MANUAL) 1 % (3.4-9.0); NEUTROPHILS % (MANUAL) 81 % (40-74); PLATELET ESTIMATE ADEQUATE; RBC MORPHOLOGY COMMENT NORMAL
[2021-10-19 09:42] LABS: PLATELET MORPHOLOGY COMMENT FEW GIANT
[2021-10-19] MEDS: IRON SUCROSE 100 MG in SODIUM CHLORIDE 0.9% 100 ML IV SCH (09:50)
[2021-10-19] MEDS ORDERED: BISACODYL 5 MG TAB EC PO ONE ×5 (17:35→19:30)
[2021-10-19 18:49] LABS: INR 1.28; PROTHROMBIN TIME 17.1 seconds (11.9-14.5)
[2021-10-19] MEDS: TRAZODONE HCL 50 MG TAB PO SCH (20:02)
[2021-10-19] MEDS: ATORVASTATIN 10 MG TAB PO SCH (20:02)
[2021-10-19] MEDS ORDERED: ONDANSETRON HCL INJ 2MG/ML 2ML 2 MG/ML VIAL IV PRN (21:15)
[2021-10-19] MEDS ORDERED: ONDANSETRON HCL INJ 2MG/ML 2ML 2 MG/ML VIAL IV ONE (21:15)
[2021-10-19] MEDS ORDERED: PHYTONADIONE 10 MG/ML AMP IV ONE (22:45)
[2021-10-19] MEDS ORDERED: PHYTONADIONE 10MG/ML 20 MG in SODIUM CHLORIDE 0.9% 100 ML IV ONE (22:45)
[2021-10-19] MEDS ORDERED: CITRATE OF MAGNESIA 300ML BOTTLE PO ONE (23:00)
[2021-10-20] VITALS (59 sets, daily range): BP systolic 81–146; BP diastolic 36–101
[2021-10-20 02:17] LABS: HEMATOCRIT 31.4 % (34.2-44.1); HEMOGLOBIN 10.4 g/dL (12.0-16.0)
[2021-10-20 06:13] LABS: BASOPHILS # (AUTO) 0.1 (0.0-0.1); BASOPHILS % 0.7 % (0.0-1.0); EOSINOPHILS # (AUTO) 0.1 (0.0-0.4); EOSINOPHILS % 0.7 % (0.0-6.0); HEMATOCRIT 30.8 % (34.2-44.1); HEMOGLOBIN 10.4 g/dL (12.0-16.0); LYMPHOCYTES # (AUTO) 0.9 (1.0-3.2); LYMPHOCYTES % 4.6 % (18.0-39.1); MEAN CORPUSCULAR HEMOGLOBIN 28.2 pg (28-32); MEAN CORPUSCULAR HGB CONC 33.8 g/dL (31-35); MEAN CORPUSCULAR VOLUME 83.5 fL (81-99); MONOCYTES # (AUTO) 0.3 (0.2-0.8); MONOCYTES % 1.3 % (4.4-11.3); NEUTROPHILS # (AUTO) 17.9 (2.1-6.9); NEUTROPHILS % 92.1 % (38.7-80.0); PLATELET COUNT 203 x10e3/uL (140-360); RED BLOOD COUNT 3.69 x10e6/uL (3.6-5.1); RED CELL DISTRIBUTION WIDTH 16.2 % (11.7-14.4)
[2021-10-20 06:21] LABS: INR 1.28; PROTHROMBIN TIME 17.1 seconds (11.9-14.5)
[2021-10-20 06:39] LABS: ALBUMIN 1.7 g/dL (3.5-5.0); ALBUMIN/GLOBULIN RATIO 0.6 (0.8-2.0); ANION GAP 10.9 mmol/L (8-16); CALCIUM 7.5 mg/dL (8.4-10.2); CREATININE, SERUM 0.63 mg/dL (0.57-1.11)
[2021-10-20 06:51] LABS: POTASSIUM 2.9 mmol/L (3.5-5.1)
[2021-10-20] MEDS ORDERED: CITRATE OF MAGNESIA 300ML BOTTLE PO ONE (07:00)
[2021-10-20] MEDS: NOREPINEPHRINE 8 MG/D5W 250 ML 250 ML IV SCH (07:15)
[2021-10-20] MEDS: DEXTROSE 5% 1,000 ML IV SCH ×2 (07:52→17:43)
[2021-10-20] MEDS: POTASSIUM CHLORIDE 20MEQ/100ML 100 ML IV SCH ×2 (07:53→10:05)
[2021-10-20] MEDS: OCTREOTIDE ACETATE 500 MCG in SODIUM CHLORIDE 0.9% 250ML 250 ML IV SCH ×2 (08:21→19:26)
[2021-10-20] MEDS: DOCUSATE SODIUM 100 MG CAP PO SCH ×2 (08:56→17:00)
[2021-10-20] MEDS: METOPROLOL TARTRATE 25 MG TAB PO SCH ×2 (08:56→17:00)
[2021-10-20] MEDS: MULTIVITAMINS/MINERALS TAB PO SCH (08:57)
[2021-10-20] MEDS: LIDOCAINE 4% PATCH TP SCH (09:00)
[2021-10-20] MEDS ORDERED: SODIUM CHLORIDE 0.9% 250ML 250 ML ONE (10:14)
[2021-10-20] MEDS: IRON SUCROSE 100 MG in SODIUM CHLORIDE 0.9% 100 ML IV SCH (10:24)
[2021-10-20] MEDS: BALSAM PERU/CASTOR OIL 60 GM OINT...G. TP SCH (10:25)
[2021-10-20 14:36] LABS: HEMATOCRIT 24.1 % (34.2-44.1); HEMOGLOBIN 7.9 g/dL (12.0-16.0)
[2021-10-20 14:59] LABS: ANION GAP 10.4 mmol/L (8-16); CREATININE, SERUM 0.68 mg/dL (0.57-1.11); MAGNESIUM 1.5 MG/DL (1.3-2.1); PHOSPHORUS 1.3 MG/DL (2.3-4.7); POTASSIUM 3.4 mmol/L (3.5-5.1)
[2021-10-20 15:00] LABS: CALCIUM 6.9 mg/dL (8.4-10.2)
[2021-10-20] MEDS: Vancomycin IV 1 GM in SODIUM CHLORIDE 0.9% 250ML 250 ML IV SCH (15:26)
[2021-10-20] MEDS ORDERED: CALCIUM GLUC 1 G/50 ML NACL 50 ML IV ONE (19:00)
[2021-10-20] MEDS ORDERED: POTASSIUM PHOSPHATE 15 MM in SODIUM CHLORIDE 0.9% 250ML 250 ML IV ONE (20:30)
[2021-10-20] MEDS: ATORVASTATIN 10 MG TAB PO SCH (21:00)
[2021-10-20] MEDS: TRAZODONE HCL 50 MG TAB PO SCH (21:00)
[2021-10-20 21:47] LABS: HEMATOCRIT 25.8 % (34.2-44.1); HEMOGLOBIN 8.4 g/dL (12.0-16.0)
[2021-10-20 23:28] LABS: INR 1.19; PROTHROMBIN TIME 16.2 seconds (11.9-14.5)
[2021-10-20] MEDS ORDERED: PHYTONADIONE 10 MG/ML AMP IV STA (23:50)
[2021-10-21] VITALS (32 sets, daily range): BP systolic 89–158; BP diastolic 63–98
[2021-10-21] MEDS: OCTREOTIDE ACETATE 500 MCG in SODIUM CHLORIDE 0.9% 250ML 250 ML IV SCH ×3 (00:42→20:15)
[2021-10-21] MEDS: Vancomycin IV 1 GM in SODIUM CHLORIDE 0.9% 250ML 250 ML IV SCH ×2 (03:25→15:06)
[2021-10-21] MEDS: NOREPINEPHRINE 8 MG/D5W 250 ML 250 ML IV SCH (07:15)
[2021-10-21 07:42] LABS: BASOPHILS % 0.3 % (0.0-1.0); EOSINOPHILS # (AUTO) 0.5 (0.0-0.4); EOSINOPHILS % 5.2 % (0.0-6.0); HEMATOCRIT 24.7 % (34.2-44.1); HEMOGLOBIN 8.1 g/dL (12.0-16.0); LYMPHOCYTES # (AUTO) 1.3 (1.0-3.2); LYMPHOCYTES % 13.8 % (18.0-39.1); MEAN CORPUSCULAR HEMOGLOBIN 28.5 pg (28-32); MEAN CORPUSCULAR HGB CONC 32.8 g/dL (31-35); MONOCYTES # (AUTO) 0.3 (0.2-0.8); MONOCYTES % 3.1 % (4.4-11.3); NEUTROPHILS # (AUTO) 7.1 (2.1-6.9); NEUTROPHILS % 77.2 % (38.7-80.0); PLATELET COUNT 150 x10e3/uL (140-360); RED BLOOD COUNT 2.84 x10e6/uL (3.6-5.1); RED CELL DISTRIBUTION WIDTH 17.2 % (11.7-14.4)
[2021-10-21 08:04] LABS: ALBUMIN 1.8 g/dL (3.5-5.0); ALBUMIN/GLOBULIN RATIO 0.7 (0.8-2.0); ANION GAP 10.9 mmol/L (8-16); CREATININE, SERUM 0.56 mg/dL (0.57-1.11)
[2021-10-21 08:10] LABS: POTASSIUM 2.9 mmol/L (3.5-5.1)
[2021-10-21 08:11] LABS: CALCIUM 6.7 mg/dL (8.4-10.2)
[2021-10-21] MEDS ORDERED: POTASSIUM CHLORIDE 20MEQ/100ML 200 ML IV ONE ×2 (08:30→17:00)
[2021-10-21] MEDS: METOPROLOL TARTRATE 25 MG TAB PO SCH ×2 (09:00→17:00)
[2021-10-21] MEDS: MULTIVITAMINS/MINERALS TAB PO SCH (09:00)
[2021-10-21] MEDS: DOCUSATE SODIUM 100 MG CAP PO SCH ×2 (09:00→17:00)
[2021-10-21] MEDS: BALSAM PERU/CASTOR OIL 60 GM OINT...G. TP SCH (09:03)
[2021-10-21] MEDS: LIDOCAINE 4% PATCH TP SCH (09:03)
[2021-10-21] MEDS ORDERED: MIDAZOLAM HCL 2 MG/2 ML VIAL ONE (09:35)
[2021-10-21] MEDS ORDERED: FENTANYL CITRATE/PF 100MCG/2 ML INJ ONE (09:35)
[2021-10-21] MEDS ORDERED: PROPOFOL IV EMULSION 10 MG/ML 20 ML VIAL ONE (10:08)
[2021-10-21] MEDS: IRON SUCROSE 100 MG in SODIUM CHLORIDE 0.9% 100 ML IV SCH (10:59)
[2021-10-21] MEDS ORDERED: SODIUM CHLORIDE 0.9% 500ML 500 ML ONE (15:22)
[2021-10-21 17:08] LABS: ANION GAP 9.4 mmol/L (8-16); CREATININE, SERUM 0.48 mg/dL (0.57-1.11); MAGNESIUM 1.2 MG/DL (1.3-2.1); PHOSPHORUS 1.4 MG/DL (2.3-4.7); POTASSIUM 3.4 mmol/L (3.5-5.1)
[2021-10-21 17:14] LABS: CALCIUM 6.1 mg/dL (8.4-10.2)
[2021-10-21] MEDS ORDERED: CALCIUM GLUC 1 G/50 ML NACL 50 ML IV ONE (17:30)
[2021-10-21] MEDS ORDERED: MAGNESIUM SULFATE 2GM/50ML 50 ML IV ONE (17:30)
[2021-10-21] MEDS ORDERED: SODIUM PHOSPHATE IV ONE ×2 (17:30)
[2021-10-21] MEDS ORDERED: NACL IV ONE ×2 (17:30)
[2021-10-21] MEDS ORDERED: SODIUM CHLORIDE IV ONE ×2 (17:30)
[2021-10-21] MEDS: DEXTROSE 5%/0.45% SOD CHL 1,000 ML IV SCH (17:36)
[2021-10-21] MEDS: ATORVASTATIN 10 MG TAB PO SCH (21:31)
[2021-10-21] MEDS: TRAZODONE HCL 50 MG TAB PO SCH (21:31)
[2021-10-22] VITALS (25 sets, daily range): BP systolic 47–152; BP diastolic 21–116
[2021-10-22] MEDS: ACETAMINOPHEN 325 MG TAB PO PRN ×4 (00:08→23:43)
[2021-10-22] MEDS: Vancomycin IV 1 GM in SODIUM CHLORIDE 0.9% 250ML 250 ML IV SCH ×2 (02:14→15:00)
[2021-10-22] MEDS: OCTREOTIDE ACETATE 500 MCG in SODIUM CHLORIDE 0.9% 250ML 250 ML IV SCH ×3 (03:13→23:46)
[2021-10-22 06:30] LABS: BASOPHILS % 0.6 % (0.0-1.0); EOSINOPHILS # (AUTO) 0.4 (0.0-0.4); EOSINOPHILS % 5.9 % (0.0-6.0); HEMATOCRIT 28.6 % (34.2-44.1); HEMOGLOBIN 9.1 g/dL (12.0-16.0); LYMPHOCYTES # (AUTO) 1.2 (1.0-3.2); LYMPHOCYTES % 17.3 % (18.0-39.1); MEAN CORPUSCULAR HEMOGLOBIN 28.3 pg (28-32); MEAN CORPUSCULAR HGB CONC 31.8 g/dL (31-35); MEAN CORPUSCULAR VOLUME 88.8 fL (81-99); MONOCYTES # (AUTO) 0.4 (0.2-0.8); MONOCYTES % 5.2 % (4.4-11.3); NEUTROPHILS # (AUTO) 4.8 (2.1-6.9); NEUTROPHILS % 70.3 % (38.7-80.0); PLATELET COUNT 160 x10e3/uL (140-360); RED BLOOD COUNT 3.22 x10e6/uL (3.6-5.1); RED CELL DISTRIBUTION WIDTH 18.2 % (11.7-14.4)
[2021-10-22 06:49] LABS: ALANINE AMINOTRANSFERASE 12 IU/L (0-55); ALBUMIN 1.6 g/dL (3.5-5.0); ALBUMIN/GLOBULIN RATIO 0.6 (0.8-2.0); ALKALINE PHOSPHATASE 111 IU/L (40-150); ANION GAP 8.9 mmol/L (8-16); BLOOD UREA NITROGEN < 5 mg/dL (7-26); BUN/CREATININE RATIO 9 (6-25); CALCIUM 7.3 mg/dL (8.4-10.2); CARBON DIOXIDE 22 mmol/L (22-29); CHLORIDE 116 mmol/L (98-107); CREATININE, SERUM 0.58 mg/dL (0.57-1.11); GLUCOSE 78 mg/dL (74-118); MAGNESIUM 1.6 MG/DL (1.3-2.1); POTASSIUM 3.9 mmol/L (3.5-5.1); SODIUM 143 mmol/L (136-145)
[2021-10-22] MEDS: DOCUSATE SODIUM 100 MG CAP PO SCH ×2 (09:00→17:00)
[2021-10-22] MEDS: LIDOCAINE 4% PATCH TP SCH (09:07)
[2021-10-22] MEDS: BALSAM PERU/CASTOR OIL 60 GM OINT...G. TP SCH (09:07)
[2021-10-22] MEDS: METOPROLOL TARTRATE 25 MG TAB PO SCH ×2 (11:18→17:22)
[2021-10-22] MEDS: MULTIVITAMINS/MINERALS TAB PO SCH (11:18)
[2021-10-22] MEDS: IRON SUCROSE 100 MG in SODIUM CHLORIDE 0.9% 100 ML IV SCH (12:51)
[2021-10-22] MEDS: DEXTROSE 5%/0.45% SOD CHL 1,000 ML IV SCH (13:33)
[2021-10-22] MEDS: MELATONIN 3 MG TAB PO PRN (21:05)
[2021-10-22] MEDS: TRAZODONE HCL 50 MG TAB PO SCH (21:05)
[2021-10-22] MEDS: ATORVASTATIN 10 MG TAB PO SCH (21:05)
[2021-10-22] MEDS ORDERED: SODIUM CHLORIDE 0.9% 250ML 0 ML ONE (21:13)
[2021-10-23] VITALS (12 sets, daily range): BP systolic 114–143; BP diastolic 43–90
[2021-10-23] MEDS: Vancomycin IV 1 GM in SODIUM CHLORIDE 0.9% 250ML 250 ML IV SCH ×2 (02:02→11:59)
[2021-10-23 06:46] LABS: BASOPHILS % 0.7 % (0.0-1.0); EOSINOPHILS # (AUTO) 0.3 (0.0-0.4); EOSINOPHILS % 6.7 % (0.0-6.0); HEMATOCRIT 27.8 % (34.2-44.1); HEMOGLOBIN 8.9 g/dL (12.0-16.0); LYMPHOCYTES # (AUTO) 0.7 (1.0-3.2); LYMPHOCYTES % 18.5 % (18.0-39.1); MEAN CORPUSCULAR HEMOGLOBIN 28.3 pg (28-32); MEAN CORPUSCULAR VOLUME 88.5 fL (81-99); MONOCYTES # (AUTO) 0.3 (0.2-0.8); MONOCYTES % 7.5 % (4.4-11.3); NEUTROPHILS # (AUTO) 2.6 (2.1-6.9); NEUTROPHILS % 65.1 % (38.7-80.0); PLATELET COUNT 172 x10e3/uL (140-360); RED BLOOD COUNT 3.14 x10e6/uL (3.6-5.1); RED CELL DISTRIBUTION WIDTH 18.7 % (11.7-14.4)
[2021-10-23 07:13] LABS: ALANINE AMINOTRANSFERASE 16 IU/L (0-55); ALBUMIN 1.6 g/dL (3.5-5.0); ALBUMIN/GLOBULIN RATIO 0.6 (0.8-2.0); ALKALINE PHOSPHATASE 165 IU/L (40-150); ANION GAP 10.1 mmol/L (8-16); BLOOD UREA NITROGEN < 5 mg/dL (7-26); CALCIUM 7.2 mg/dL (8.4-10.2); CARBON DIOXIDE 21 mmol/L (22-29); CHLORIDE 115 mmol/L (98-107); CREATININE, SERUM 0.53 mg/dL (0.57-1.11); GLUCOSE 99 mg/dL (74-118); POTASSIUM 3.1 mmol/L (3.5-5.1); SODIUM 143 mmol/L (136-145)
[2021-10-23 07:14] LABS: BUN/CREATININE RATIO 9 (6-25)
[2021-10-23] MEDS: DOCUSATE SODIUM 100 MG CAP PO SCH ×2 (09:00→16:58)
[2021-10-23] MEDS: MULTIVITAMINS/MINERALS TAB PO SCH (09:00)
[2021-10-23] MEDS: LIDOCAINE 4% PATCH TP SCH (09:00)
[2021-10-23] MEDS: METOPROLOL TARTRATE 25 MG TAB PO SCH ×3 (09:01→16:59)
[2021-10-23] MEDS: BALSAM PERU/CASTOR OIL 60 GM OINT...G. TP SCH (09:01)
[2021-10-23] MEDS ORDERED: SODIUM CHLORIDE 0.9% 100 ML ONE (09:06)
[2021-10-23] MEDS ORDERED: POTASSIUM CHLORIDE 20MEQ/100ML 200 ML IV ONE (09:15)
[2021-10-23] MEDS: IRON SUCROSE 100 MG in SODIUM CHLORIDE 0.9% 100 ML IV SCH (10:39)
[2021-10-23] MEDS: OCTREOTIDE ACETATE 500 MCG in SODIUM CHLORIDE 0.9% 250ML 250 ML IV SCH (13:29)
[2021-10-23] MEDS: ACETAMINOPHEN 325 MG TAB PO PRN ×2 (13:33→21:47)
[2021-10-23] MEDS: TRAZODONE HCL 50 MG TAB PO SCH (21:47)
[2021-10-23] MEDS: ATORVASTATIN 10 MG TAB PO SCH (21:47)
[2021-10-23] MEDS: MELATONIN 3 MG TAB PO PRN (21:50)
[2021-10-24] VITALS (7 sets, daily range): BP systolic 98–134; BP diastolic 56–103
[2021-10-24] MEDS ORDERED: FUROSEMIDE INJ 10 MG/ML 2 ML VIAL IV ONE (04:15)
[2021-10-24 05:49] LABS: BASOPHILS # (AUTO) 0.1 (0.0-0.1); BASOPHILS % 1.3 % (0.0-1.0); EOSINOPHILS # (AUTO) 0.3 (0.0-0.4); EOSINOPHILS % 7.4 % (0.0-6.0); HEMATOCRIT 32.2 % (34.2-44.1); HEMOGLOBIN 9.9 g/dL (12.0-16.0); LYMPHOCYTES # (AUTO) 1.1 (1.0-3.2); LYMPHOCYTES % 23.3 % (18.0-39.1); MEAN CORPUSCULAR HEMOGLOBIN 28.5 pg (28-32); MEAN CORPUSCULAR HGB CONC 30.7 g/dL (31-35); MEAN CORPUSCULAR VOLUME 92.8 fL (81-99); MONOCYTES # (AUTO) 0.4 (0.2-0.8); MONOCYTES % 8.5 % (4.4-11.3); NEUTROPHILS # (AUTO) 2.7 (2.1-6.9); NEUTROPHILS % 58.4 % (38.7-80.0); PLATELET COUNT 205 x10e3/uL (140-360); RED BLOOD COUNT 3.47 x10e6/uL (3.6-5.1); RED CELL DISTRIBUTION WIDTH 19.9 % (11.7-14.4)
[2021-10-24] MEDS: DEXTROSE 5%/0.45% SOD CHL 1,000 ML IV SCH ×2 (06:36→17:30)
[2021-10-24] MEDS ORDERED: SODIUM CHLORIDE 0.9% 250ML 250 ML ONE (06:46)
[2021-10-24] MEDS: OCTREOTIDE ACETATE 500 MCG in SODIUM CHLORIDE 0.9% 250ML 250 ML IV SCH ×3 (06:50→18:36)
[2021-10-24 06:51] LABS: ALANINE AMINOTRANSFERASE 20 IU/L (0-55); ALBUMIN 1.6 g/dL (3.5-5.0); ALBUMIN/GLOBULIN RATIO 0.5 (0.8-2.0); ALKALINE PHOSPHATASE 223 IU/L (40-150); ANION GAP 13.7 mmol/L (8-16); BLOOD UREA NITROGEN < 5 mg/dL (7-26); CALCIUM 7.3 mg/dL (8.4-10.2); CARBON DIOXIDE 17 mmol/L (22-29); CHLORIDE 114 mmol/L (98-107); CREATININE, SERUM 0.55 mg/dL (0.57-1.11); GLUCOSE 80 mg/dL (74-118); POTASSIUM 3.7 mmol/L (3.5-5.1); SODIUM 141 mmol/L (136-145)
[2021-10-24 06:54] LABS: BUN/CREATININE RATIO 9 (6-25)
[2021-10-24] MEDS: MULTIVITAMINS/MINERALS TAB PO SCH (09:45)
[2021-10-24] MEDS: DOCUSATE SODIUM 100 MG CAP PO SCH ×2 (09:46→16:31)
[2021-10-24] MEDS: LIDOCAINE 4% PATCH TP SCH (09:46)
[2021-10-24] MEDS: METOPROLOL TARTRATE 25 MG TAB PO SCH ×2 (09:46→17:00)
[2021-10-24] MEDS: BALSAM PERU/CASTOR OIL 60 GM OINT...G. TP SCH (10:08)
[2021-10-24] MEDS: ALBUTEROL/IPRATROPIUM 3 ML NEB NEB PRN (10:10)
[2021-10-24] MEDS: Vancomycin IV 1 GM in SODIUM CHLORIDE 0.9% 250ML 250 ML IV SCH (10:13)
[2021-10-24] MEDS: ACETAMINOPHEN 325 MG TAB PO PRN (13:36)
[2021-10-24] MEDS: TRAZODONE HCL 50 MG TAB PO SCH (20:35)
[2021-10-24] MEDS: ATORVASTATIN 10 MG TAB PO SCH (20:35)
[2021-10-25] VITALS (8 sets, daily range): BP systolic 87–133; BP diastolic 51–69
[2021-10-25] MEDS ORDERED: MAGNESIUM SULFATE 2GM/50ML 50 ML IV ONE (03:45)
[2021-10-25] MEDS: OCTREOTIDE ACETATE 500 MCG in SODIUM CHLORIDE 0.9% 250ML 250 ML IV SCH ×2 (04:39→13:48)
[2021-10-25 06:55] LABS: BASOPHILS # (AUTO) 0.1 (0.0-0.1); BASOPHILS % 0.8 % (0.0-1.0); EOSINOPHILS # (AUTO) 0.2 (0.0-0.4); HEMATOCRIT 25.7 % (34.2-44.1); HEMOGLOBIN 8.5 g/dL (12.0-16.0); LYMPHOCYTES # (AUTO) 1.8 (1.0-3.2); LYMPHOCYTES % 30.2 % (18.0-39.1); MEAN CORPUSCULAR HEMOGLOBIN 28.8 pg (28-32); MEAN CORPUSCULAR HGB CONC 33.1 g/dL (31-35); MONOCYTES # (AUTO) 0.4 (0.2-0.8); NEUTROPHILS # (AUTO) 3.4 (2.1-6.9); PLATELET COUNT 224 x10e3/uL (140-360); RED BLOOD COUNT 2.95 x10e6/uL (3.6-5.1); RED CELL DISTRIBUTION WIDTH 19.7 % (11.7-14.4)
[2021-10-25 06:58] LABS: MEAN CORPUSCULAR VOLUME 87.1 fL (81-99)
[2021-10-25 07:28] LABS: ALANINE AMINOTRANSFERASE 20 IU/L (0-55); ALBUMIN 1.5 g/dL (3.5-5.0); ALBUMIN/GLOBULIN RATIO 0.5 (0.8-2.0); ALKALINE PHOSPHATASE 275 IU/L (40-150); ANION GAP 9.9 mmol/L (8-16); BLOOD UREA NITROGEN < 5 mg/dL (7-26); CALCIUM 7.1 mg/dL (8.4-10.2); CARBON DIOXIDE 21 mmol/L (22-29); CHLORIDE 115 mmol/L (98-107); CREATININE, SERUM 0.59 mg/dL (0.57-1.11); SODIUM 143 mmol/L (136-145)
[2021-10-25 07:40] LABS: BUN/CREATININE RATIO 8 (6-25)
[2021-10-25 07:43] LABS: POTASSIUM 2.9 mmol/L (3.5-5.1)
[2021-10-25 07:44] LABS: GLUCOSE 45 mg/dL (74-118)
[2021-10-25] MEDS ORDERED: ONDANSETRON HCL 4 MG ORAL DISINTEGRATING TAB PO PRN (08:30)
[2021-10-25] MEDS: METOPROLOL TARTRATE 25 MG TAB PO SCH ×2 (09:00→16:10)
[2021-10-25] MEDS: DOCUSATE SODIUM 100 MG CAP PO SCH ×2 (09:17→16:10)
[2021-10-25] MEDS: MULTIVITAMINS/MINERALS TAB PO SCH (09:17)
[2021-10-25] MEDS: BALSAM PERU/CASTOR OIL 60 GM OINT...G. TP SCH (09:18)
[2021-10-25] MEDS: LIDOCAINE 4% PATCH TP SCH (09:18)
[2021-10-25] MEDS: Vancomycin IV 1 GM in SODIUM CHLORIDE 0.9% 250ML 250 ML IV SCH (10:55)
[2021-10-25] MEDS: DEXTROSE 5%/0.45% SOD CHL 1,000 ML IV SCH (16:11)
[2021-10-25] MEDS: ATORVASTATIN 10 MG TAB PO SCH (21:48)
[2021-10-25] MEDS: TRAZODONE HCL 50 MG TAB PO SCH (21:48)
[2021-10-26] VITALS (9 sets, daily range): BP systolic 92–134; BP diastolic 50–72
[2021-10-26] MEDS: OCTREOTIDE ACETATE 500 MCG in SODIUM CHLORIDE 0.9% 250ML 250 ML IV SCH (00:45)
[2021-10-26] MEDS ORDERED: ACETAMINOPHEN 1000 MG/100 ML IV STA (01:23)
[2021-10-26 07:18] LABS: BASOPHILS # (AUTO) 0.1 (0.0-0.1); BASOPHILS % 0.8 % (0.0-1.0); EOSINOPHILS # (AUTO) 0.2 (0.0-0.4); EOSINOPHILS % 3.4 % (0.0-6.0); HEMATOCRIT 22.6 % (34.2-44.1); HEMOGLOBIN 7.7 g/dL (12.0-16.0); LYMPHOCYTES # (AUTO) 1.5 (1.0-3.2); LYMPHOCYTES % 23.6 % (18.0-39.1); MEAN CORPUSCULAR HEMOGLOBIN 28.9 pg (28-32); MEAN CORPUSCULAR HGB CONC 34.1 g/dL (31-35); MONOCYTES # (AUTO) 0.5 (0.2-0.8); MONOCYTES % 7.7 % (4.4-11.3); NEUTROPHILS # (AUTO) 4.2 (2.1-6.9); NEUTROPHILS % 63.7 % (38.7-80.0); PLATELET COUNT 242 x10e3/uL (140-360); RED BLOOD COUNT 2.66 x10e6/uL (3.6-5.1); RED CELL DISTRIBUTION WIDTH 20.1 % (11.7-14.4)
[2021-10-26 07:37] LABS: ALANINE AMINOTRANSFERASE 19 IU/L (0-55); ALBUMIN 1.5 g/dL (3.5-5.0); ALBUMIN/GLOBULIN RATIO 0.6 (0.8-2.0); ALKALINE PHOSPHATASE 247 IU/L (40-150); ANION GAP 8.9 mmol/L (8-16); BLOOD UREA NITROGEN < 5 mg/dL (7-26); CALCIUM 7.1 mg/dL (8.4-10.2); CARBON DIOXIDE 21 mmol/L (22-29); CHLORIDE 113 mmol/L (98-107); CREATININE, SERUM 0.69 mg/dL (0.57-1.11); GLUCOSE 63 mg/dL (74-118); MAGNESIUM 1.5 MG/DL (1.3-2.1); SODIUM 140 mmol/L (136-145)
[2021-10-26 07:45] LABS: BUN/CREATININE RATIO 7 (6-25); POTASSIUM 2.9 mmol/L (3.5-5.1)
[2021-10-26] MEDS: DOCUSATE SODIUM 100 MG CAP PO SCH ×2 (08:38→17:30)
[2021-10-26] MEDS: METOPROLOL TARTRATE 25 MG TAB PO SCH ×2 (08:39→17:00)
[2021-10-26] MEDS: BALSAM PERU/CASTOR OIL 60 GM OINT...G. TP SCH (08:40)
[2021-10-26] MEDS: LIDOCAINE 4% PATCH TP SCH (08:40)
[2021-10-26] MEDS: MULTIVITAMINS/MINERALS TAB PO SCH (08:40)
[2021-10-26] MEDS ORDERED: POTASSIUM CHLORIDE 20MEQ/100ML 200 ML IV ONE (09:00)
[2021-10-26] MEDS: Vancomycin IV 1 GM in SODIUM CHLORIDE 0.9% 250ML 250 ML IV SCH (11:15)
[2021-10-26] MEDS: DEXTROSE 5%/0.45% SOD CHL 1,000 ML IV SCH (17:30)
[2021-10-26] MEDS: ATORVASTATIN 10 MG TAB PO SCH (20:47)
[2021-10-26] MEDS: TRAZODONE HCL 50 MG TAB PO SCH (20:47)
[2021-10-26] MEDS: ACETAMINOPHEN 325 MG TAB PO PRN (20:48)
[2021-10-27] VITALS (7 sets, daily range): BP systolic 108–136; BP diastolic 52–81
[2021-10-27] MEDS ORDERED: ACETAMINOPHEN 1000 MG/100 ML IV STA (00:24)
[2021-10-27 06:16] LABS: BASOPHILS # (AUTO) 0.1 (0.0-0.1); BASOPHILS % 0.8 % (0.0-1.0); EOSINOPHILS # (AUTO) 0.2 (0.0-0.4); EOSINOPHILS % 2.8 % (0.0-6.0); HEMATOCRIT 23.8 % (34.2-44.1); HEMOGLOBIN 7.9 g/dL (12.0-16.0); LYMPHOCYTES # (AUTO) 1.7 (1.0-3.2); LYMPHOCYTES % 19.8 % (18.0-39.1); MEAN CORPUSCULAR HEMOGLOBIN 28.6 pg (28-32); MEAN CORPUSCULAR HGB CONC 33.2 g/dL (31-35); MEAN CORPUSCULAR VOLUME 86.2 fL (81-99); MONOCYTES # (AUTO) 0.6 (0.2-0.8); MONOCYTES % 6.8 % (4.4-11.3); NEUTROPHILS % 69.2 % (38.7-80.0); PLATELET COUNT 255 x10e3/uL (140-360); RED BLOOD COUNT 2.76 x10e6/uL (3.6-5.1); RED CELL DISTRIBUTION WIDTH 20.5 % (11.7-14.4); RETICULOCYTE % 1.8 % (0.8-2.2)
[2021-10-27 06:40] LABS: ALANINE AMINOTRANSFERASE 19 IU/L (0-55); ALBUMIN 1.5 g/dL (3.5-5.0); ALBUMIN/GLOBULIN RATIO 0.6 (0.8-2.0); ALKALINE PHOSPHATASE 277 IU/L (40-150); ANION GAP 9.3 mmol/L (8-16); BLOOD UREA NITROGEN < 5 mg/dL (7-26); CALCIUM 7.4 mg/dL (8.4-10.2); CARBON DIOXIDE 20 mmol/L (22-29); CHLORIDE 114 mmol/L (98-107); CREATININE, SERUM 0.87 mg/dL (0.57-1.11); GLUCOSE 110 mg/dL (74-118); POTASSIUM 3.3 mmol/L (3.5-5.1); SODIUM 140 mmol/L (136-145)
[2021-10-27 06:41] LABS: BUN/CREATININE RATIO 6 (6-25)
[2021-10-27] MEDS: ONDANSETRON HCL INJ 2MG/ML 2ML 2 MG/ML VIAL IV SCH ×3 (06:44→17:00)
[2021-10-27 07:01] LABS: AMYLASE 49 U/L (25-125); LIPASE 11 U/L (8-78)
[2021-10-27] MEDS: METOPROLOL TARTRATE 25 MG TAB PO SCH ×2 (09:00→16:58)
[2021-10-27] MEDS: DOCUSATE SODIUM 100 MG CAP PO SCH ×2 (09:00→16:57)
[2021-10-27] MEDS: MULTIVITAMINS/MINERALS TAB PO SCH (09:00)
[2021-10-27] MEDS: DEXTROSE 5%/0.45% SOD CHL 1,000 ML IV SCH (16:56)
[2021-10-27] MEDS: BALSAM PERU/CASTOR OIL 60 GM OINT...G. TP SCH (16:57)
[2021-10-27] MEDS: LIDOCAINE 4% PATCH TP SCH (16:58)
[2021-10-27] MEDS: ATORVASTATIN 10 MG TAB PO SCH (21:00)
[2021-10-27] MEDS: TRAZODONE HCL 50 MG TAB PO SCH (21:00)
[2021-10-27 22:51] LABS: CLARITY,URINE TURBID (CLEAR); COLOR,URINE AMBER (YELLOW); KETONES,URINE TRACE (NEGATIVE); LEUKOCYTE ESTERASE ,URINE SMALL (NEGATIVE); NITRITE,URINE NEGATIVE (NEGATIVE); PROTEIN,URINE DIPSTICK 2+ (NEGATIVE); URINE UROBILINOGEN 0.2 mg/dL (0.2 - 1)
[2021-10-27 22:57] LABS: AMORPHOUS SEDIMENT,URINE MANY (FEW); BACTERIA,URINE MODERATE /HPF; EPITHELIAL CELLS,URINE FEW /LPF; WBC,URINE (MAN) 21-50 /HPF (0-5)
[2021-10-28] VITALS (7 sets, daily range): BP systolic 100–131; BP diastolic 47–97
[2021-10-28] MEDS ORDERED: LEVOFLOXACIN 500MG/D5W 100ML 100 ML IV ONE (00:30)
[2021-10-28] MEDS: ONDANSETRON HCL INJ 2MG/ML 2ML 2 MG/ML VIAL IV SCH ×4 (00:39→17:50)
[2021-10-28] MEDS ORDERED: SODIUM CHLORIDE 0.9% 1000ML 250 ML IV SCH (00:45)
[2021-10-28] MEDS: METOPROLOL TARTRATE 25 MG TAB PO SCH ×2 (09:19→16:29)
[2021-10-28] MEDS: MULTIVITAMINS/MINERALS TAB PO SCH (09:19)
[2021-10-28] MEDS: LIDOCAINE 4% PATCH TP SCH (09:19)
[2021-10-28] MEDS: DOCUSATE SODIUM 100 MG CAP PO SCH ×2 (09:19→16:29)
[2021-10-28] MEDS: BALSAM PERU/CASTOR OIL 60 GM OINT...G. TP SCH (09:22)
[2021-10-28] MEDS: DEXTROSE 5%/0.45% SOD CHL 1,000 ML IV SCH (17:30)
[2021-10-28 18:08] LABS: ALBUMIN 1.5 g/dL (3.5-5.0); ALBUMIN/GLOBULIN RATIO 0.5 (0.8-2.0); ANION GAP 12.6 mmol/L (8-16); CALCIUM 7.2 mg/dL (8.4-10.2); CREATININE, SERUM 1.17 mg/dL (0.57-1.11); POTASSIUM 3.6 mmol/L (3.5-5.1)
[2021-10-28] MEDS ORDERED: DEXTROSE 50% SYRINGE 50 ML IV ONE (18:42)
[2021-10-28] MEDS: TRAZODONE HCL 50 MG TAB PO SCH (21:00)
[2021-10-28] MEDS: ATORVASTATIN 10 MG TAB PO SCH (21:00)
[2021-10-29] VITALS (8 sets, daily range): BP systolic 93–128; BP diastolic 51–86
[2021-10-29] MEDS: FLUCONAZOLE 200 MG/100 ML 100 ML IV SCH (00:30)
[2021-10-29] MEDS: LEVOFLOXACIN 500MG/D5W 100ML 100 ML IV SCH (00:45)
[2021-10-29] MEDS: ONDANSETRON HCL INJ 2MG/ML 2ML 2 MG/ML VIAL IV SCH (00:45)
[2021-10-29] MEDS ORDERED: DEXTROSE 50% SYRINGE 50 ML IV ONE (08:04)
[2021-10-29] MEDS: METOPROLOL TARTRATE 25 MG TAB PO SCH ×2 (09:00→16:42)
[2021-10-29] MEDS: DOCUSATE SODIUM 100 MG CAP PO SCH ×2 (09:00→16:42)
[2021-10-29] MEDS: MULTIVITAMINS/MINERALS TAB PO SCH (09:00)
[2021-10-29] MEDS: LIDOCAINE 4% PATCH TP SCH (10:02)
[2021-10-29] MEDS: BALSAM PERU/CASTOR OIL 60 GM OINT...G. TP SCH (10:02)
[2021-10-29] MEDS: DEXTROSE 5%/0.45% SOD CHL 1,000 ML IV SCH (18:42)
[2021-10-29] MEDS: TRAZODONE HCL 50 MG TAB PO SCH (21:00)
[2021-10-29] MEDS: ATORVASTATIN 10 MG TAB PO SCH (21:00)
[2021-10-29 22:03] LABS: ALBUMIN 1.4 g/dL (3.5-5.0); ALBUMIN/GLOBULIN RATIO 0.5 (0.8-2.0); ANION GAP 10.3 mmol/L (8-16); CALCIUM 7.1 mg/dL (8.4-10.2); CREATININE, SERUM 1.51 mg/dL (0.57-1.11); POTASSIUM 3.3 mmol/L (3.5-5.1)
[2021-10-29 22:07] LABS: BASOPHILS # (AUTO) 0.2 (0.0-0.1); BASOPHILS % 1.6 % (0.0-1.0); EOSINOPHILS # (AUTO) 0.3 (0.0-0.4); EOSINOPHILS % 3.1 % (0.0-6.0); HEMOGLOBIN 7.4 g/dL (12.0-16.0); LYMPHOCYTES # (AUTO) 2.3 (1.0-3.2); LYMPHOCYTES % 21.7 % (18.0-39.1); MEAN CORPUSCULAR HEMOGLOBIN 28.7 pg (28-32); MEAN CORPUSCULAR HGB CONC 33.3 g/dL (31-35); MONOCYTES # (AUTO) 0.7 (0.2-0.8); MONOCYTES % 6.2 % (4.4-11.3); NEUTROPHILS # (AUTO) 7.1 (2.1-6.9); PLATELET COUNT 229 x10e3/uL (140-360); RED BLOOD COUNT 2.58 x10e6/uL (3.6-5.1); RED CELL DISTRIBUTION WIDTH 21.6 % (11.7-14.4)
[2021-10-29 22:27] LABS: HEMATOCRIT 22.2 % (34.2-44.1)
[2021-10-30] VITALS (8 sets, daily range): BP systolic 81–121; BP diastolic 44–81
[2021-10-30] MEDS: FLUCONAZOLE 200 MG/100 ML 100 ML IV SCH (00:07)
[2021-10-30] MEDS ORDERED: SODIUM CHLORIDE 0.9% 1000ML 500 ML IV ONE ×2 (00:30→01:45)
[2021-10-30] MEDS: LEVOFLOXACIN 500MG/D5W 100ML 100 ML IV SCH (01:00)
[2021-10-30] MEDS: METOCLOPRAMIDE HCL 10 MG/2ML VIAL IV SCH ×3 (06:00→17:40)
[2021-10-30 06:03] LABS: BASOPHILS # (AUTO) 0.2 (0.0-0.1); BASOPHILS % 1.5 % (0.0-1.0); EOSINOPHILS # (AUTO) 0.4 (0.0-0.4); HEMATOCRIT 24.1 % (34.2-44.1); HEMOGLOBIN 7.9 g/dL (12.0-16.0); LYMPHOCYTES # (AUTO) 2.4 (1.0-3.2); LYMPHOCYTES % 25.1 % (18.0-39.1); MEAN CORPUSCULAR HEMOGLOBIN 28.7 pg (28-32); MEAN CORPUSCULAR HGB CONC 32.8 g/dL (31-35); MEAN CORPUSCULAR VOLUME 87.6 fL (81-99); MONOCYTES # (AUTO) 0.6 (0.2-0.8); MONOCYTES % 5.9 % (4.4-11.3); NEUTROPHILS # (AUTO) 6.1 (2.1-6.9); PLATELET COUNT 235 x10e3/uL (140-360); RED BLOOD COUNT 2.75 x10e6/uL (3.6-5.1)
[2021-10-30 06:23] LABS: ALBUMIN 1.5 g/dL (3.5-5.0); ALBUMIN/GLOBULIN RATIO 0.6 (0.8-2.0); ANION GAP 8.3 mmol/L (8-16); CALCIUM 7.1 mg/dL (8.4-10.2); CREATININE, SERUM 1.53 mg/dL (0.57-1.11); POTASSIUM 3.3 mmol/L (3.5-5.1)
[2021-10-30 06:26] LABS: INR 1.32; PROTHROMBIN TIME 17.5 seconds (11.9-14.5)
[2021-10-30] MEDS: DEXTROSE 5%/0.45% SOD CHL 1,000 ML IV SCH ×3 (06:51→22:36)
[2021-10-30] MEDS ORDERED: FUROSEMIDE INJ 10 MG/ML 2 ML VIAL IV ONE ×2 (07:30→21:45)
[2021-10-30 08:27] LABS: EOSINOPHILS % (MANUAL) 1 % (0-7); LYMPHOCYTES % (MANUAL) 21 % (19-48); MONOCYTES % (MANUAL) 3 % (3.4-9.0); NEUTROPHILS % (MANUAL) 74 % (40-74)
[2021-10-30 08:28] LABS: PLATELET ESTIMATE ADEQUATE; PLATELET MORPHOLOGY COMMENT NORMAL; RBC MORPHOLOGY COMMENT NORMAL
[2021-10-30] MEDS: METOPROLOL TARTRATE 25 MG TAB PO SCH ×2 (08:40→17:00)
[2021-10-30] MEDS: DOCUSATE SODIUM 100 MG CAP PO SCH ×2 (08:40→17:00)
[2021-10-30] MEDS: MULTIVITAMINS/MINERALS TAB PO SCH (08:41)
[2021-10-30] MEDS: LIDOCAINE 4% PATCH TP SCH (08:45)
[2021-10-30] MEDS: BALSAM PERU/CASTOR OIL 60 GM OINT...G. TP SCH (08:45)
[2021-10-30] MEDS ORDERED: ONDANSETRON HCL INJ 2MG/ML 2ML 2 MG/ML VIAL IV PRN (12:00)
[2021-10-30] MEDS ORDERED: DEXTROSE 50% SYRINGE 50 ML IV STA (20:24)
[2021-10-30] MEDS: TRAZODONE HCL 50 MG TAB PO SCH (21:00)
[2021-10-30] MEDS: ATORVASTATIN 10 MG TAB PO SCH (21:00)
[2021-10-31] VITALS (49 sets, daily range): BP systolic 62–137; BP diastolic 23–119
[2021-10-31] MEDS: METOCLOPRAMIDE HCL 10 MG/2ML VIAL IV SCH ×5 (01:02→23:24)
[2021-10-31] MEDS ORDERED: SODIUM CHLORIDE 0.9% 1000ML 1,000 ML ONE (04:01)
[2021-10-31 04:11] LABS: ABG HCO3 15 mmol/L (22-26); ABG PCO2 33 mmHg (35-45); ABG PH 7.25 (7.35-7.45); ABG PO2 85 mmHg (80-105); ABG TCO2 16
[2021-10-31] MEDS ORDERED: SODIUM CHLORIDE 0.9% 1000ML 1,770 ML IV SCH (04:15)
[2021-10-31 04:25] LABS: BASOPHILS # (AUTO) 0.1 (0.0-0.1); BASOPHILS % 1.5 % (0.0-1.0); EOSINOPHILS # (AUTO) 0.3 (0.0-0.4); EOSINOPHILS % 3.1 % (0.0-6.0); LYMPHOCYTES # (AUTO) 1.8 (1.0-3.2); LYMPHOCYTES % 22.6 % (18.0-39.1); MEAN CORPUSCULAR HEMOGLOBIN 28.3 pg (28-32); MEAN CORPUSCULAR VOLUME 85.8 fL (81-99); MONOCYTES # (AUTO) 0.5 (0.2-0.8); MONOCYTES % 5.6 % (4.4-11.3); NEUTROPHILS # (AUTO) 5.4 (2.1-6.9); PLATELET COUNT 148 x10e3/uL (140-360); RED BLOOD COUNT 2.19 x10e6/uL (3.6-5.1); RED CELL DISTRIBUTION WIDTH 21.7 % (11.7-14.4)
[2021-10-31] MEDS ORDERED: PIPERACILLIN/TAZOBACTAM 3.375 GM VIAL ONE (04:35)
[2021-10-31 04:38] LABS: HEMATOCRIT 18.8 % (34.2-44.1); HEMOGLOBIN 6.2 g/dL (12.0-16.0)
[2021-10-31 04:43] LABS: ALBUMIN 1.1 g/dL (3.5-5.0); ALBUMIN/GLOBULIN RATIO 0.5 (0.8-2.0); ANION GAP 10.8 mmol/L (8-16); CREATININE, SERUM 1.53 mg/dL (0.57-1.11)
[2021-10-31 04:44] LABS: CALCIUM 5.4 mg/dL (8.4-10.2); POTASSIUM 2.8 mmol/L (3.5-5.1)
[2021-10-31 04:50] LABS: CREATINE KINASE MB 2.5 ng/mL (0-5.0)
[2021-10-31] MEDS ORDERED: NOREPINEPHRINE 8 MG/D5W 250 ML 250 ML ONE (05:02)
[2021-10-31] MEDS ORDERED: POTASSIUM CHLORIDE 20MEQ/100ML 200 ML IV ONE (05:30)
[2021-10-31] MEDS ORDERED: SODIUM CHLORIDE 0.9% 250ML 250 ML IV ONE (05:30)
[2021-10-31] MEDS: DEXTROSE 5%/0.45% SOD CHL 1,000 ML IV SCH (05:48)
[2021-10-31] MEDS ORDERED: SODIUM CHLORIDE 0.9% 250ML 250 ML ONE (08:42)
[2021-10-31] MEDS: DOCUSATE SODIUM 100 MG CAP PO SCH ×2 (09:00→16:08)
[2021-10-31] MEDS: MULTIVITAMINS/MINERALS TAB PO SCH (09:00)
[2021-10-31] MEDS: LIDOCAINE 4% PATCH TP SCH (09:08)
[2021-10-31] MEDS: BALSAM PERU/CASTOR OIL 60 GM OINT...G. TP SCH (09:27)
[2021-10-31] MEDS ORDERED: LACTATED RINGER'S 1,000 ML INJ ONE (09:45)
[2021-10-31] MEDS ORDERED: LEVOFLOXACIN 250MG/D5W 50ML 50 ML IV SCH (10:00)
[2021-10-31 12:56] LABS: EOSINOPHILS % (MANUAL) 3 % (0-7); LYMPHOCYTES % (MANUAL) 19 % (19-48); MONOCYTES % (MANUAL) 3 % (3.4-9.0); NEUTROPHILS % (MANUAL) 72 % (40-74)
[2021-10-31 12:57] LABS: ANISOCYTOSIS MODERATE; HYPOCHROMASIA MODERATE; MICROCYTOSIS MODERATE; OVALOCYTES FEW; PLATELET ESTIMATE SLIGHTLY DECREASED; PLATELET MORPHOLOGY COMMENT NORMAL; RBC MORPHOLOGY COMMENT ABNORMAL; TARGET CELLS FEW
[2021-10-31] MEDS ORDERED: CALCIUM CHLORIDE 27.2 MEQ in SODIUM CHLORIDE 0.9% 250ML 250 ML IV ONE (18:15)
[2021-10-31] MEDS: SODIUM BICARBONATE 8.4% 50 ML in SODIUM CHLORIDE 0.45% 1,000 ML IV SCH (19:45)
[2021-10-31] MEDS: TRAZODONE HCL 50 MG TAB PO SCH (21:00)
[2021-10-31] MEDS: ATORVASTATIN 10 MG TAB PO SCH (21:00)
[2021-11-01] VITALS (87 sets, daily range): BP systolic 60–160; BP diastolic 41–110
[2021-11-01] MEDS: SODIUM BICARBONATE 8.4% 50 ML in SODIUM CHLORIDE 0.45% 1,000 ML IV SCH ×2 (03:49→14:00)
[2021-11-01] MEDS: NOREPINEPHRINE 8 MG/D5W 250 ML 250 ML IV SCH ×3 (05:15→21:56)
[2021-11-01] MEDS: METOCLOPRAMIDE HCL 10 MG/2ML VIAL IV SCH ×3 (05:38→19:43)
[2021-11-01 08:00] LABS: ANION GAP 10.9 mmol/L (8-16); CALCIUM 7.4 mg/dL (8.4-10.2); CREATININE, SERUM 2.12 mg/dL (0.57-1.11); PHOSPHORUS 3.1 MG/DL (2.3-4.7); POTASSIUM 3.9 mmol/L (3.5-5.1)
[2021-11-01 08:03] LABS: MAGNESIUM 1.1 MG/DL (1.3-2.1)
[2021-11-01] MEDS: DOCUSATE SODIUM 100 MG CAP PO SCH ×2 (08:37→16:47)
[2021-11-01] MEDS: MULTIVITAMINS/MINERALS TAB PO SCH (08:37)
[2021-11-01] MEDS: LIDOCAINE 4% PATCH TP SCH (08:48)
[2021-11-01] MEDS: BALSAM PERU/CASTOR OIL 60 GM OINT...G. TP SCH (08:49)
[2021-11-01 13:19] LABS: BASOPHILS # (AUTO) 0.2 (0.0-0.1); BASOPHILS % 1.4 % (0.0-1.0); EOSINOPHILS # (AUTO) 0.4 (0.0-0.4); EOSINOPHILS % 3.1 % (0.0-6.0); HEMATOCRIT 30.7 % (34.2-44.1); HEMOGLOBIN 10.5 g/dL (12.0-16.0); LYMPHOCYTES # (AUTO) 2.4 (1.0-3.2); LYMPHOCYTES % 18.1 % (18.0-39.1); MEAN CORPUSCULAR HEMOGLOBIN 27.6 pg (28-32); MEAN CORPUSCULAR HGB CONC 34.2 g/dL (31-35); MEAN CORPUSCULAR VOLUME 80.8 fL (81-99); MONOCYTES # (AUTO) 0.8 (0.2-0.8); MONOCYTES % 6.1 % (4.4-11.3); NEUTROPHILS # (AUTO) 9.3 (2.1-6.9); NEUTROPHILS % 70.7 % (38.7-80.0); PLATELET COUNT 106 x10e3/uL (140-360); RED CELL DISTRIBUTION WIDTH 20.8 % (11.7-14.4)
[2021-11-01] MEDS ORDERED: FUROSEMIDE INJ 10 MG/ML 2 ML VIAL IV ONE (16:00)
[2021-11-01] MEDS ORDERED: MAGNESIUM SULFATE 2GM/50ML 100 ML IV ONE (16:00)
[2021-11-01] MEDS: TRAZODONE HCL 50 MG TAB PO SCH (20:23)
[2021-11-01] MEDS: ATORVASTATIN 10 MG TAB PO SCH (20:23)
[2021-11-02] VITALS (85 sets, daily range): BP systolic 60–165; BP diastolic 30–141
[2021-11-02] MEDS: METOCLOPRAMIDE HCL 10 MG/2ML VIAL IV SCH ×4 (01:15→18:50)
[2021-11-02] MEDS: NOREPINEPHRINE 8 MG/D5W 250 ML 250 ML IV SCH ×3 (04:22→21:26)
[2021-11-02] MEDS ORDERED: NOREPINEPHRINE 8 MG/D5W 250 ML 250 ML IV PRN (06:30)
[2021-11-02] MEDS: ALBUTEROL/IPRATROPIUM 3 ML NEB NEB PRN (07:30)
[2021-11-02 07:54] LABS: ALBUMIN 1.1 g/dL (3.5-5.0); ALBUMIN/GLOBULIN RATIO 0.3 (0.8-2.0); CREATININE, SERUM 2.32 mg/dL (0.57-1.11)
[2021-11-02 07:57] LABS: CALCIUM 6.9 mg/dL (8.4-10.2)
[2021-11-02 08:03] LABS: BASOPHILS # (AUTO) 0.3 (0.0-0.1); BASOPHILS % 1.6 % (0.0-1.0); EOSINOPHILS # (AUTO) 0.5 (0.0-0.4); EOSINOPHILS % 2.8 % (0.0-6.0); HEMATOCRIT 32.1 % (34.2-44.1); HEMOGLOBIN 10.7 g/dL (12.0-16.0); LYMPHOCYTES # (AUTO) 4.3 (1.0-3.2); LYMPHOCYTES % 24.4 % (18.0-39.1); MEAN CORPUSCULAR HEMOGLOBIN 27.6 pg (28-32); MEAN CORPUSCULAR HGB CONC 33.3 g/dL (31-35); MEAN CORPUSCULAR VOLUME 82.7 fL (81-99); MONOCYTES % 11.3 % (4.4-11.3); NEUTROPHILS # (AUTO) 10.3 (2.1-6.9); NEUTROPHILS % 59.3 % (38.7-80.0); PLATELET COUNT 72 x10e3/uL (140-360); RED BLOOD COUNT 3.88 x10e6/uL (3.6-5.1); RED CELL DISTRIBUTION WIDTH 21.5 % (11.7-14.4)
[2021-11-02 08:12] LABS: MAGNESIUM 1.8 MG/DL (1.3-2.1)
[2021-11-02] MEDS: BALSAM PERU/CASTOR OIL 60 GM OINT...G. TP SCH (09:00)
[2021-11-02] MEDS: DOCUSATE SODIUM 100 MG CAP PO SCH ×2 (09:00→17:00)
[2021-11-02] MEDS: MULTIVITAMINS/MINERALS TAB PO SCH (09:00)
[2021-11-02] MEDS: LIDOCAINE 4% PATCH TP SCH (09:28)
[2021-11-02] MEDS: SODIUM BICARBONATE 8.4% 50 ML in SODIUM CHLORIDE 0.45% 1,000 ML IV SCH ×4 (09:37→16:42)
[2021-11-02 10:14] LABS: EOSINOPHILS % (MANUAL) 1 % (0-7); LYMPHOCYTES % (MANUAL) 25 % (19-48); MONOCYTES % (MANUAL) 7 % (3.4-9.0); NEUTROPHILS % (MANUAL) 67 % (40-74)
[2021-11-02 10:15] LABS: ANISOCYTOSIS MARKED; HYPOCHROMASIA SLIGHT; PLATELET ESTIMATE MODERATELY DECREASED; PLATELET MORPHOLOGY COMMENT NORMAL; RBC MORPHOLOGY COMMENT ABNORMAL
[2021-11-02 10:56] LABS: ABG PCO2 29 mmHg (35-45); ABG PH 7.28 (7.35-7.45)
[2021-11-02 10:57] LABS: ABG HCO3 14 mmol/L (22-26); ABG PO2 70 mmHg (80-105); ABG TCO2 15
[2021-11-02 12:22] LABS: TOTAL PROTEIN 24HR, URINE 258.3 mg/24hr (50-100); TOTAL PROTEIN, URINE 258.3 mg/dL (1-14)
[2021-11-02] MEDS ORDERED: MAGNESIUM SULFATE 2GM/50ML 50 ML IV ONE (15:30)
[2021-11-02] MEDS: SODIUM BICARBONATE 8.4% 150 ML in DEXTROSE 5% 1,000 ML IV SCH (20:14)
[2021-11-02] MEDS: ATORVASTATIN 10 MG TAB PO SCH (20:16)
[2021-11-02] MEDS: TRAZODONE HCL 50 MG TAB PO SCH (20:16)
[2021-11-02] MEDS ORDERED: BUMETANIDE INJ 0.25MG/ML 4ML VIAL IV ONE (21:00)
[2021-11-02] MEDS: VASOPRESSIN 60 UNIT in DEXTROSE 5% 50ML 57 ML IV PRN (21:28)
[2021-11-03] VITALS (101 sets, daily range): BP systolic 67–148; BP diastolic 24–84
[2021-11-03] MEDS: NOREPINEPHRINE 8 MG/D5W 250 ML 250 ML IV SCH ×5 (00:33→21:55)
[2021-11-03] MEDS: METOCLOPRAMIDE HCL 10 MG/2ML VIAL IV SCH ×4 (01:00→18:00)
[2021-11-03 06:05] LABS: BASOPHILS # (AUTO) 0.2 (0.0-0.1); EOSINOPHILS # (AUTO) 0.7 (0.0-0.4); EOSINOPHILS % 4.4 % (0.0-6.0); LYMPHOCYTES # (AUTO) 2.1 (1.0-3.2); LYMPHOCYTES % 13.6 % (18.0-39.1); MEAN CORPUSCULAR HEMOGLOBIN 27.7 pg (28-32); MEAN CORPUSCULAR HGB CONC 33.3 g/dL (31-35); MEAN CORPUSCULAR VOLUME 83.1 fL (81-99); MONOCYTES # (AUTO) 0.9 (0.2-0.8); MONOCYTES % 5.7 % (4.4-11.3); NEUTROPHILS # (AUTO) 11.5 (2.1-6.9); NEUTROPHILS % 74.4 % (38.7-80.0); PLATELET COUNT 53 x10e3/uL (140-360); RED BLOOD COUNT 3.97 x10e6/uL (3.6-5.1)
[2021-11-03 06:31] LABS: ALBUMIN/GLOBULIN RATIO 0.3 (0.8-2.0); ANION GAP 9.9 mmol/L (8-16); CREATININE, SERUM 2.76 mg/dL (0.57-1.11); MAGNESIUM 2.3 MG/DL (1.3-2.1); POTASSIUM 3.9 mmol/L (3.5-5.1)
[2021-11-03 06:34] LABS: CALCIUM 6.8 mg/dL (8.4-10.2)
[2021-11-03 07:28] LABS: BAND NEUTROPHILS % (MANUAL) 4 %; EOSINOPHILS % (MANUAL) 3 % (0-7); LYMPHOCYTES % (MANUAL) 8 % (19-48); METAMYELOCYTES % (MANUAL) 2 % (0-0); MONOCYTES % (MANUAL) 7 % (3.4-9.0); MYELOCYTES % (MANUAL) 3 % (0-0); NEUTROPHILS % (MANUAL) 65 % (40-74)
[2021-11-03 07:30] LABS: PLATELET ESTIMATE MODERATELY DECREASED
[2021-11-03 07:31] LABS: PLATELET MORPHOLOGY COMMENT NORMAL
[2021-11-03 07:33] LABS: ANISOCYTOSIS MARKED; TARGET CELLS FEW
[2021-11-03] MEDS: SODIUM BICARBONATE 8.4% 150 ML in DEXTROSE 5% 1,000 ML IV SCH (07:49)
[2021-11-03] MEDS ORDERED: ALBUMIN 25% 12.5GM 50ML 100 ML IV ONE (08:48)
[2021-11-03] MEDS ORDERED: DEXMEDETOMIDINE 400MCG/NS100ML 100 ML IV ONE (08:59)
[2021-11-03] MEDS: MULTIVITAMINS/MINERALS TAB PO SCH (09:00)
[2021-11-03] MEDS: DOCUSATE SODIUM 100 MG CAP PO SCH (09:00)
[2021-11-03 09:11] LABS: ABG HCO3 22 mmol/L (22-26); ABG PCO2 104 mmHg (35-45); ABG PH 6.94 (7.35-7.45); ABG PO2 123 mmHg (80-105); ABG TCO2 25
[2021-11-03] MEDS ORDERED: NOREPINEPHRINE 8 MG/D5W 250 ML 250 ML ONE (09:52)
[2021-11-03] MEDS: LIDOCAINE 4% PATCH TP SCH (09:58)
[2021-11-03] MEDS: BALSAM PERU/CASTOR OIL 60 GM OINT...G. TP SCH (10:54)
[2021-11-03] MEDS: DEXMEDETOMIDINE 400MCG/NS100ML 100 ML IV PRN ×2 (10:56→14:35)
[2021-11-03] MEDS ORDERED: ALBUMIN 25% 12.5GM 0.25 GM/ML BTL IV ONE (11:00)
[2021-11-03] MEDS ORDERED: SODIUM CHLORIDE 0.45% 1,000 ML ONE (12:51)
[2021-11-03] MEDS: VASOPRESSIN 60 UNIT in DEXTROSE 5% 50ML 57 ML IV PRN (14:37)
[2021-11-03 15:42] LABS: ABG PCO2 22 mmHg (35-45); ABG PH 7.42 (7.35-7.45)
[2021-11-03 15:43] LABS: ABG HCO3 14 mmol/L (22-26); ABG PO2 71 mmHg (80-105); ABG TCO2 15
[2021-11-03] MEDS: TRAZODONE HCL 50 MG TAB PO SCH (21:00)
[2021-11-03] MEDS: ATORVASTATIN 10 MG TAB PO SCH (21:55)
[2021-11-04] VITALS (29 sets, daily range): BP systolic 73–101; BP diastolic 33–69
[2021-11-04] MEDS: METOCLOPRAMIDE HCL 10 MG/2ML VIAL IV SCH ×2 (00:49→05:41)
[2021-11-04] MEDS: NOREPINEPHRINE 8 MG/D5W 250 ML 250 ML IV SCH ×2 (01:28→05:40)
[2021-11-04] MEDS: VASOPRESSIN 60 UNIT in DEXTROSE 5% 50ML 57 ML IV PRN (04:02)
[2021-11-04 06:46] LABS: BASOPHILS # (AUTO) 0.1 (0.0-0.1); BASOPHILS % 1.2 % (0.0-1.0); EOSINOPHILS # (AUTO) 0.4 (0.0-0.4); EOSINOPHILS % 3.6 % (0.0-6.0); HEMOGLOBIN 12.1 g/dL (12.0-16.0); LYMPHOCYTES # (AUTO) 2.6 (1.0-3.2); LYMPHOCYTES % 23.4 % (18.0-39.1); MEAN CORPUSCULAR HGB CONC 36.7 g/dL (31-35); MONOCYTES # (AUTO) 1.1 (0.2-0.8); MONOCYTES % 9.8 % (4.4-11.3); NEUTROPHILS # (AUTO) 6.6 (2.1-6.9); NEUTROPHILS % 60.3 % (38.7-80.0); RED BLOOD COUNT 4.32 x10e6/uL (3.6-5.1); RED CELL DISTRIBUTION WIDTH 20.3 % (11.7-14.4)
[2021-11-04 06:53] LABS: MEAN CORPUSCULAR VOLUME 76.4 fL (81-99); PLATELET COUNT 10 x10e3/uL (140-360)
[2021-11-04 07:06] LABS: ALBUMIN/GLOBULIN RATIO 0.3 (0.8-2.0); ANION GAP 15.9 mmol/L (8-16); CREATININE, SERUM 2.97 mg/dL (0.57-1.11); POTASSIUM 3.9 mmol/L (3.5-5.1)
[2021-11-04 07:08] LABS: CALCIUM 6.8 mg/dL (8.4-10.2)
== END 2021-11-04 12:23 | disposition expired | DRG 871 ==
LOC: ER 16:45 → ERHOLD 21:48 → ICU 22:28 → MED/SURG2 10-23 16:13 → ICU 10-31 04:14
PROVIDERS: ADMIT Internal Medicine; ATTEND Internal Medicine
PROC: 30233N1 Transfusion of Nonautologous Red Blood Cells into Peripheral Vein, Percutaneous Approach (ICD-10-PCS; 2021-10-17)
PROC: 02HV33Z Insertion of Infusion Device into Superior Vena Cava, Percutaneous Approach (ICD-10-PCS; 2021-10-18)
PROC: 3E043XZ Introduction of Vasopressor into Central Vein, Percutaneous Approach (ICD-10-PCS; 2021-10-18)
PROC: 3E04329 Introduction of Other Anti-infective into Central Vein, Percutaneous Approach (ICD-10-PCS; 2021-10-18)
PROC: 0DJ08ZZ Inspection of Upper Intestinal Tract, Via Natural or Artificial Opening Endoscopic (ICD-10-PCS; principal; 2021-10-21 15:10)
PROC: 5A09357 Assistance with Respiratory Ventilation, Less than 24 Consecutive Hours, Continuous Positive Airway Pressure (ICD-10-PCS; 2021-11-02)
PROC: 5A1935Z Respiratory Ventilation, Less than 24 Consecutive Hours (ICD-10-PCS; 2021-11-03)
PROC: 0BH17EZ Insertion of Endotracheal Airway into Trachea, Via Natural or Artificial Opening (ICD-10-PCS; 2021-11-03)
DX: A41.9 Sepsis, unspecified organism (principal); G92.8 Other toxic encephalopathy; K57.31 Diverticulosis of large intestine without perforation or abscess with bleeding; G93.41 Metabolic encephalopathy; R65.21 Severe sepsis with septic shock; K83.1 Obstruction of bile duct; J96.02 Acute respiratory failure with hypercapnia; D68.32 Hemorrhagic disorder due to extrinsic circulating anticoagulants; I48.20 Chronic atrial fibrillation, unspecified; E87.0 Hyperosmolality and hypernatremia; N17.9 Acute kidney failure, unspecified; M48.55XA Collapsed vertebra, not elsewhere classified, thoracolumbar region, initial encounter for fracture; D62 Acute posthemorrhagic anemia; E44.0 Moderate protein-calorie malnutrition; K11.3 Abscess of salivary gland; B17.9 Acute viral hepatitis, unspecified; B37.49 Other urogenital candidiasis; E87.4 Mixed disorder of acid-base balance; Z79.01 Long term (current) use of anticoagulants; R57.8 Other shock; T45.515A Adverse effect of anticoagulants, initial encounter; I10 Essential (primary) hypertension; Z86.718 Personal history of other venous thrombosis and embolism; E87.6 Hypokalemia; K44.9 Diaphragmatic hernia without obstruction or gangrene; K31.7 Polyp of stomach and duodenum; K62.89 Other specified diseases of anus and rectum; F03.90 Unspecified dementia, unspecified severity, without behavioral disturbance, psychotic disturbance, mood disturbance, and anxiety; M10.9 Gout, unspecified; K21.9 Gastro-esophageal reflux disease without esophagitis; E78.5 Hyperlipidemia, unspecified; F41.9 Anxiety disorder, unspecified; K11.21 Acute sialoadenitis; E04.1 Nontoxic single thyroid nodule; E16.2 Hypoglycemia, unspecified; Z87.11 Personal history of peptic ulcer disease; R62.7 Adult failure to thrive; E83.42 Hypomagnesemia; Z66 Do not resuscitate; Z68.24 Body mass index [BMI] 24.0-24.9, adult; K20.90 Esophagitis, unspecified without bleeding; K29.70 Gastritis, unspecified, without bleeding
CPT/HCPCS: 36415; 36569; 36600; 43239; 70491; 71045; 71046; 74018; 74150; 74174; 74470; 76536; 76705; 78278; 80048; 80053; 80202; 81001; 81050; 82150; 82270; 82550; 82553; 82607; 82728; 82746; 82805; 82948; 83540; 83605; 83690; 83735; 84100; 84132; 84156; 84443; 84466; 84484; 85014; 85018; 85025; 85045; 85384; 85610; 85730; 86850; 86900; 86920; 87040; 87086; 87205; 93005; 93971; 94003; 94640; 94660; 94760; 94799; 96361; 99251; 99285; A9512; J0456; J1450; J1644; J1756; J1940; J1956; J2250; J2353; J2354; J2405; J2543; J2765; J3010; J3370; J3430; J3475; J3480; J7030; J7040; J7050; J7070; J7121; J7799; P9016; P9017; Q9967